=== PATIENT | female | born 1940 | race Caucasian/White ===

== ENCOUNTER → 2017-05-10 | Outpatient (CLI) | payer MEDICARE ==
[~2017-05-10] MED LIST: AML5T PO; AMLO10TA2 PO; ASP325T PO; ASPI-624 PO; AZIT250T5 PO; CEFD300C3 PO; CHOL500044 PO; CPR250T PO; FISH1200 PO; GABA-488 PO; GLIP5TAB13 PO; HYDR12.56 PO; INSU100C4 SQ; INSU100I10 SC; LOSA100T16 PO; METR500T PO; MULT-35 PO; OMG1KC PO; PRAV20TA3 PO; PRV20T PO
--- NOTE | 2017-05-10 10:01 | Diagnostic Imaging Report ---
INDICATION: Right upper quadrant pain. Gallbladder sonography performed in the routine fashion. FINDINGS: The liver shows diffuse mild increased echogenicity compatible with fatty infiltration. Portal vein is patent with flow in the normal direction towards the liver. Common duct measured 2.4 mm. The gallbladder shows no gallstones or sludge or wall thickening. Pancreas is unremarkable to the extent seen. The right kidney was normal measuring 8.8 cm in length. There is no ascites. IMPRESSION: Unremarkable gallbladder sonography. Dictated by: Dictated on workstation # [id number]
== END ==
LOC: RAD 07:39
PROVIDERS: ATTEND Family Medicine
DX: R10.11 Right upper quadrant pain (principal)
CPT/HCPCS: 76705

== ENCOUNTER → 2017-05-24 | Outpatient (CLI) | payer MEDICARE ==
[~2017-05-24] MED LIST changes: +CATHETER FLUSH 10 ML SYR IV PRN
--- NOTE | 2017-05-24 13:07 | Diagnostic Imaging Report ---
EXAMINATION: HIDA with EF measurements Indication: Abdominal pain TECHNIQUE: After the intravenous administration of 5.3 mCi of Tc 99m Choletec, imaging over the abdomen was obtained. This was followed by administration of Ensure orally to stimulate intrinsic CCK secretion, followed by continued imaging with ejection fraction measured. FINDINGS: There is homogeneous uptake in the liver with prompt bile duct and gallbladder filling seen. Bowel activity is seen at 55 minutes. Based on further imaging and gallbladder area of interest activity measurements after the administration of Ensure, the gallbladder ejection fraction is estimated at 60%. IMPRESSION: 1. Normal hepatobiliary uptake and Gallbladder filling. 2. Normal gallbladder ejection fraction. Dictated by: Dictated on workstation # [id number]
== END ==
LOC: CARD 09:32
PROVIDERS: ATTEND Family Medicine
DX: R10.11 Right upper quadrant pain (principal)
CPT/HCPCS: 78227

== ENCOUNTER → 2017-05-28 | Outpatient (CLI) | payer MEDICARE ==
[~2017-05-28] MED LIST changes: +IOHEXOL 350 MG/ML 100 ML (OMNIPAQUE 350) VIAL IV ONE; +NS 100 ML (IVPB) BAG IV ONE
--- NOTE | 2017-05-28 14:19 | Diagnostic Imaging Report ---
PROCEDURE: CT abdomen and pelvis with contrast. TECHNIQUE: Multiple contiguous axial images were obtained through the abdomen and pelvis after administration of intravenous contrast. INDICATION: Abdominal pain. COMPARISON: 02/28/2011. FINDINGS: There is minimal atelectasis in the lung bases. There is mild diffuse hepatic steatosis. No focal hepatic mass is seen. Gallbladder appears unremarkable. The portal vein appears patent. The pancreas, spleen and adrenal glands appear unremarkable. Both kidneys are atrophic with diffuse cortical thinning. There is a 1.6 cm cyst in the inferior left renal cortex. No obstructive changes are seen. The appendix appears normal. There is diverticulosis without evidence of diverticulitis. Calcification in the uterine fundus may be a degenerating uterine fibroid. There is no ascites or adenopathy. Abdominal aorta appears normal in caliber. There are degenerative changes in the spine. IMPRESSION: 1. Both kidneys are atrophied with diffuse cortical thinning. There is a 1.4 cm left renal cyst. 2. Diverticulosis without evidence of diverticulitis. 3. Mild diffuse hepatic steatosis. Dictated by: Dictated on workstation # [id number]
== END ==
LOC: RAD 13:03
PROVIDERS: ATTEND Family Medicine
DX: N28.1 Cyst of kidney, acquired (principal); N26.1 Atrophy of kidney (terminal); K57.30 Diverticulosis of large intestine without perforation or abscess without bleeding
CPT/HCPCS: 74177

== ENCOUNTER 2017-08-07 13:02 | Emergency (ER) | payer MEDICARE ==
[~2017-08-07] VITALS: Ht 152.4 cm; Wt 73.9 kg
[~2017-08-07 13:02] MED LIST changes: -CATHETER FLUSH 10 ML SYR IV PRN; -IOHEXOL 350 MG/ML 100 ML (OMNIPAQUE 350) VIAL IV ONE; -NS 100 ML (IVPB) BAG IV ONE
--- NOTE | 2017-08-07 13:55 | ED GI ---
General Chief Complaint: Abdominal/GI Problems Stated Complaint: RECTAL BLEEDING Nursing Triage Note: After receiving her dialysis, patient had a large BM with blood in the stool. Pt had similiar episode several years ago and had to receive blood transfusion. Denies pain. Sepsis Screen: No Definite Risk History of Present Illness Time Seen By Provider: 13:40 Initial Comments Patient reports that approximately 10:30 this morning she had a large bowel movement after finishing dialysis. She noted blood in the stool, it was bright red. She noted a small amount of blood on her toilet tissue as well. She has had a pad in her underwear since then with no blood noted. She does have a history of hemorrhoids, diverticulosis and chronic kidney disease. She has dialysis a proximally 3 times each week. She does report last week she was having constipation and had to use a suppository. She reports having a daily bowel movement for the last 3-4 days, with no diarrhea. She denies abdominal pain or nausea. Her appetite has maintained and she had cereal for breakfast this morning. She denies feeling weak or dizzy. She had a previous colonoscopy [place] [address] Dubose, no abdominal surgeries or further colonoscopies since then. She takes an aspirin a day but does not take any other anticoagulants. Patient reports taking her blood pressure medicine this morning, hydrochlorothiazide and metoprolol. She states that her blood pressure is very labile especially after dialysis. She does report approximately 3 days ago she was given iron with her dialysis. Timing/Duration: 1-3 Hours Radiation: No Radiation Modifying Factors: Improves With Resting Associated Symptoms: Denies Symptoms Allergies and Home Medications Allergies Coded Allergies: diphenhydramine HCl (Verified Allergy, Unknown, 08/24/16) Home Medications Amlodipine Besylate 10 Mg Tablet, 10 MG PO DAILY, (Reported) Aspirin 81 Mg Tablet, 81 MG PO TuFr, (Reported) Cefdinir 300 Mg Capsule, 300 MG PO BID, #10 Prescribed by: GERTRUDE NEWSOME on 08/26/16 0812 Cholecalciferol (Vitamin D3) 5,000 Unit Tablet, 5,000 UNIT PO DAILY, (Reported) Ciprofloxacin HCl 500 Mg Tablet, 500 MG PO BID, #14 Ref 0 Prescribed by: JENNIFER LINARES on 08/07/17 1556 Gabapentin 300 Mg Capsule, 300 MG PO HS, (Reported) Glipizide 5 Mg Tablet, 5 MG PO BID, (Reported) Hydrochlorothiazide 12.5 Mg Tablet, 12.5 MG PO DAILY, (Reported) Insulin Glargine,Hum.rec.anlog 100 Unit/1 Ml Insuln.pen, 28 UNITS SC HS, ( Reported) Metronidazole 500 Mg Tablet, 500 MG PO BID, #14 Ref 0 Prescribed by: JENNIFER LINARES on 08/07/17 1556 Multivitamin 1 Each Tablet, 1 TAB PO DAILY, (Reported) Sanford 3 Polyunsat Fatty Acids 1,000 Mg Cap, 2,000 MG PO BID, (Reported) TAKES 2 (1000MG) CAPSULES Pravastatin Sodium 20 Mg Tablet, 20 MG PO DAILY, (Reported) Review of Systems Constitutional: no symptoms reported, see HPI Gastrointestinal: See HPI, Denies Abdominal Pain, Blood Streaked Stools, Denies Constipated, Denies Diarrhea, Denies Nausea, Denies Poor Appetite, Denies Poor Fluid Intake, Denies Rectal Bleeding, Denies Vomiting Genitourinary: No Symptoms Reported, See HPI All Other Systems Reviewed Negative Unless Noted: Yes Past Izdeflz-Zzeotj-Hbymnr Hx Patient Social History Alcohol Use: Denies Use Recreational Drug Use: No Smoking Status: Never a Smoker Recent Foreign Travel: No Contact w/Someone Who Travel: No Recent Infectious Disease Expo: No Recent Hopitalizations: No Immunizations Up To Date Tetanus Booster (TDap): Unknown Date of Pneumonia Vaccine: Jan 14, 2012 Surgeries History of Surgeries: Yes (polyp removal ) Respiratory History of Respiratory Disorde: Yes Respiratory Disorders: Pneumonia Currently Using CPAP: No Currently Using BIPAP: No Cardiovascular History of Cardiac Disorders: Yes Cardiac Disorders: Hypertension Neurological History of Neurological Disord: No Reproductive System Hx Reproductive Disorders: No Genitourinary Genitourinary Disorders: Renal Failure Gastrointestinal History of Gastrointestinal Di: Yes Gastrointestinal Disorders: Gastroesophageal Reflux Musculoskeletal History of Musculoskeletal Dis: Yes Musculoskeletal Disorders: Arthritis Endocrine History of Endocrine Disorders: Yes Endocrine Disorders: Diabetes, Insulin dep Cancer History of Cancer: No Psychosocial History of Psychiatric Problem: Yes Behavioral Health Disorders: Sleep Difficulties, Anxiety, Depression Integumentary History of Skin or Integumenta: No Blood Transfusions History of Blood Disorders: No Adverse Reaction to a Blood Tr: Yes Reviewed Nursing Assessment Reviewed/Agree w Nursing PMH: Yes Family Medical History Family Medial History: Cardiovascular disease G8 SISTER Diabetes mellitus 19 FATHER 19 MOTHER Neoplasm 19 FATHER 19 MOTHER Physical Exam Vital Signs VS - Last 72 Hours, by Label 08/07/17 08/07/17 13:31 16:21 Temp 96.9 97.3 Pulse 90 84 Resp 16 16 B/P (MAP) 205/101 Pulse Ox 98 O2 Delivery Room Air Capillary Refill : Less Than 3 Seconds General Appearance: WD/WN, no apparent distress HEENT: PERRL/EOMI, normal ENT inspection, TMs normal, pharynx normal Neck: non-tender, full range of motion, supple, normal inspection Respiratory: chest non-tender, lungs clear Cardiovascular: normal peripheral pulses, regular rate, rhythm, no murmur Gastrointestinal: normal bowel sounds, non tender, soft, no organomegaly, no pulsatile mass Genital/Rectal: normal rectal exam, normal rectal tone, No tenderness, other ( no internal or external hemorrhoids noted) Extremities: normal range of motion, non-tender, normal inspection, no pedal edema, no calf tenderness, normal capillary refill Neurologic/Psychiatric: no motor/sensory deficits, alert, normal mood/affect, oriented x 3 Skin: normal color, warm/dry Lymphatic: no adenopathy Progress/Results/Core Measures Results/Orders Lab Results Laboratory Tests Test 08/07/17 14:45 Range/Units White Blood Count 5.7 4.3-11.0 10^3/uL Red Blood Count 3.81 L 4.35-5.85 10^6/uL Hemoglobin 12.4 11.5-16.0 G/DL Hematocrit 36 35-52 % Mean Corpuscular Volume 95 80-99 FL Mean Corpuscular Hemoglobin 33 25-34 PG Mean Corpuscular Hemoglobin Concent 34 32-36 G/DL Red Cell Distribution Width 14.0 10.0-14.5 % Platelet Count 190 130-400 10^3/uL Mean Platelet Volume 8.6 7.4-10.4 FL Neutrophils (%) (Auto) 69 42-75 % Lymphocytes (%) (Auto) 21 12-44 % Monocytes (%) (Auto) 7 0-12 % Eosinophils (%) (Auto) 2 0-10 % Basophils (%) (Auto) 1 0-10 % Neutrophils # (Auto) 4.0 1.8-7.8 X 10^3 Lymphocytes # (Auto) 1.2 1.0-4.0 X 10^3 Monocytes # (Auto) 0.4 0.0-1.0 X 10^3 Eosinophils # (Auto) 0.1 0.0-0.3 10^3/uL Basophils # (Auto) 0.0 0.0-0.1 10^3/uL Prothrombin Time 13.0 12.2-14.7 SEC INR Comment 1.0 0.8-1.4 Activated Partial Thromboplast Time 28 24-35 SEC Sodium Level 138 135-145 MMOL/L Potassium Level 3.9 3.6-5.0 MMOL/L Chloride Level 96 L 98-107 MMOL/L Carbon Dioxide Level 28 21-32 MMOL/L Anion Gap 14 5-14 MMOL/L Blood Urea Nitrogen 15 7-18 MG/DL Creatinine 2.18 H 0.60-1.30 MG/DL Estimat Glomerular Filtration Rate 22 BUN/Creatinine Ratio 7 Glucose Level 148 H 70-105 MG/DL Calcium Level 9.7 8.5-10.1 MG/DL Total Bilirubin 0.5 0.1-1.0 MG/DL Aspartate Amino Transf (AST/SGOT) 26 5-34 U/L Alanine Aminotransferase (ALT/SGPT) 28 0-55 U/L Alkaline Phosphatase 75 40-136 U/L Total Protein 7.6 6.4-8.2 GM/DL Albumin 4.1 3.2-4.5 GM/DL My Orders Orders - JENNIFER LINARES Cbc With Automated Diff (08/07/17 13:52) Comprehensive Metabolic Panel (08/07/17 13:52) Protime With Inr (08/07/17 14:36) Partial Thromboplastin Time (08/07/17 14:36) Type And Screen (08/07/17 14:48) Ct Abdomen/Pelvis Wo (08/07/17 15:27) Vital Signs/I&O Vital Sign - Last 12Hours 08/07/17 08/07/17 13:31 16:21 Temp 96.9 97.3 Pulse 90 84 Resp 16 16 B/P (MAP) 205/101 Pulse Ox 98 O2 Delivery Room Air Blood Pressure Mean: 135 Progress Note : Time: 13:40 Progress Note Exam completed, recommended a CBC and CMP. Will await the results of these to determine further testing or treatment. Patient denied any needs at the present time. 1430 patient ambulate bathroom had a bowel movement with bright red to maroon blood present in the toilet. 1445 WBC 5.7, RBCs 3.81, hemoglobin 12.4, hematocrit 36. PT 13, INR 1.0. Sodium 138, potassium 3.9, chloride 96, BUNs in 15, creatinine 2.18; eGFR 22, glucose 148. CT without contrast of the abdomen and pelvis. 1530 CT reviewed and discussed with patient. Discussed options and care for inpatient versus outpatient management, the patient is comfortable with managing this at home for the present time. Discussed at length risks and when she should return to the emergency department. She verbalized complete understanding of this. Will start Cipro and Flagyl for the possibility of diverticulitis. She has a prescheduled appointment with Dr. Newsome in 2 days. She will ask for referral to general surgeon for future colonoscopy. All questions answered. Diagnostic Imaging Diagonstic Imaging: CT Plain Films/CT/US/NM/MRI: abdomen, pelvis Comments NAME: FERNANDA MOTA [facility] REC#: [id number] PT STATUS: REG ER : 1940 PHYSICIAN: JENNIFER LINARES ADMIT DATE: 08/07/17/ER Draft Date of Exam:08/07/17 CT ABDOMEN/PELVIS WO PROCEDURE: CT abdomen and pelvis without contrast. TECHNIQUE: Multiple contiguous axial images were obtained through the abdomen and pelvis without the use of intravenous contrast. INDICATION: Rectal pain. Bloody stools. FINDINGS: The liver, gallbladder and bile ducts are normal. The spleen, pancreas and adrenals are normal. The kidneys, ureters and bladder are normal. There is diverticulosis of the sigmoid colon. There may be minimal edematous changes of the sigmoid colon which may be related to mild early diverticulitis which appears to be a slight change from 05/28/17 study. No obstruction or perforation is present and no abscess is present. The small bowel is normal. IMPRESSION: There is diverticulosis of the colon. There is possible mild diverticulitis of the sigmoid colon with no obstruction, perforation or abscess evident. Dictated on workstation # [id number] Dict: 08/07/17 1535 Trans: 08/07/17 1540 [id number] Interpreted by: ORTEGA LONGORIA MD Electronically signed by: Reviewed: Reviewed by Me Departure Impression Impression: Primary Impression: Hematochezia Additional Impression: Diverticulosis of both small and large intestine without perforation or abscess Disposition: HOME, SELF-CARE Condition: Stable Departure-Patient Inst. Decision time for Depature: 15:30 Referrals: GERTRUDE NEWSOME DO (PCP/Family) Primary Care Physician Patient Instructions: Diverticulosis (DC), Gastrointestinal Bleeding (DC) Add. Discharge Instructions: Hold aspirin until follow-up with Dr. Newsome. Keep appointment with Dr. Newsome for Wednesday. Return to emergency department if symptoms worsen with more frequent bloody stools, lightheaded or dizzy feelings, extremely high or low blood pressure, or new concerns. Eat a primarily clear liquid diet. Take medication as prescribed. All discharge instructions reviewed with patient and/or family. Voiced understanding. Scripts Metronidazole (Flagyl) 500 Mg Tablet 500 MG PO BID, #14 TAB 0 Refills Prov: JENNIFER LINARES 08/07/17 Ciprofloxacin HCl (Cipro) 500 Mg Tablet 500 MG PO BID, #14 TAB 0 Refills Prov: JENNIFER LINARES 08/07/17 Copy Copies To 1: GERTRUDE NEWSOME AMY ARNP Aug 07, 2017 13:55
[2017-08-07 14:57] LABS: BASOPHILS % (AUTO) 1 % (0-10); EOSINOPHILS # (AUTO) 0.1 10^3/uL (0.0-0.3); EOSINOPHILS % (AUTO) 2 % (0-10); LYMPHOCYTES # (AUTO) 1.2 X 10^3 (1.0-4.0); LYMPHOCYTES % (AUTO) 21 % (12-44); MEAN CORPUSCULAR HEMOGLOBIN 33 PG (25-34); MEAN CORPUSCULAR HGB CONC 34 G/DL (32-36); MEAN CORPUSCULAR VOLUME 95 FL (80-99); MEAN PLATELET VOLUME 8.6 FL (7.4-10.4); MONOCYTES # (AUTO) 0.4 X 10^3 (0.0-1.0); MONOCYTES % (AUTO) 7 % (0-12); NEUTROPHILS % (AUTO) 69 % (42-75); PLATELET COUNT 190 10^3/uL (130-400); RED BLOOD COUNT 3.81 10^6/uL (4.35-5.85); WHITE BLOOD COUNT 5.7 10^3/uL (4.3-11.0)
[2017-08-07 15:15] LABS: ALBUMIN 4.1 GM/DL (3.2-4.5); BILIRUBIN,TOTAL 0.5 MG/DL (0.1-1.0); CALCIUM 9.7 MG/DL (8.5-10.1); CREATININE SERUM 2.18 MG/DL (0.60-1.30); POTASSIUM 3.9 MMOL/L (3.6-5.0); TOTAL PROTEIN 7.6 GM/DL (6.4-8.2)
--- NOTE | 2017-08-07 15:41 | Diagnostic Imaging Report ---
PROCEDURE: CT abdomen and pelvis without contrast. TECHNIQUE: Multiple contiguous axial images were obtained through the abdomen and pelvis without the use of intravenous contrast. INDICATION: Rectal pain. Bloody stools. FINDINGS: The liver, gallbladder and bile ducts are normal. The spleen, pancreas and adrenals are normal. The kidneys, ureters and bladder are normal. There is diverticulosis of the sigmoid colon. There may be minimal edematous changes of the sigmoid colon which may be related to mild early diverticulitis which appears to be a slight change from 05/28/17 study. No obstruction or perforation is present and no abscess is present. The small bowel is normal. IMPRESSION: There is diverticulosis of the colon. There is possible mild diverticulitis of the sigmoid colon with no obstruction, perforation or abscess evident. Dictated by: Dictated on workstation # [id number]
[2017-08-07] MEDS ORDERED: CIPR-225 PO (15:56)
[2017-08-07] MEDS ORDERED: METR500T PO (15:56)
[2017-08-07 16:21] VITALS: BP 150/92
== END 2017-08-07 16:00 | disposition home or self-care (01) ==
LOC: EDUNIT# 13:02 → ER 13:03
DX: K92.1 Melena (principal); K57.50 Diverticulosis of both small and large intestine without perforation or abscess without bleeding; E11.22 Type 2 diabetes mellitus with diabetic chronic kidney disease; I12.0 Hypertensive chronic kidney disease with stage 5 chronic kidney disease or end stage renal disease; N18.6 End stage renal disease; F41.9 Anxiety disorder, unspecified; F32.9 Major depressive disorder, single episode, unspecified; Z99.2 Dependence on renal dialysis; Z87.19 Personal history of other diseases of the digestive system; Z79.82 Long term (current) use of aspirin; Z82.49 Family history of ischemic heart disease and other diseases of the circulatory system; Z79.4 Long term (current) use of insulin; Z79.84 Long term (current) use of oral hypoglycemic drugs; Z86.010 Personal history of colon polyps
CPT/HCPCS: 36415; 74176; 80053; 85025; 85610; 85730; 86850; 86900; 86901; 99282

== ENCOUNTER 2017-10-06 14:11 | Emergency (ER) | payer MEDICARE ==
[~2017-10-06] VITALS: Ht 160 cm; Wt 74.1 kg
[~2017-10-06 14:11] MED LIST changes: +AZIT250T12 PO; -AZIT250T5 PO; +CIPR-225 PO
--- NOTE | 2017-10-06 14:19 | ED Cardiac General ---
History of Present Illness General Stated Complaint: INCREASED HEART RATE PER DR GUERRERO Source: patient Exam Limitations: no limitations History of Present Illness Time seen by provider: 14:17 Initial Comments To ER per private vehicle from Dr. Dr. Newsome's office with reports of tachycardia. This was found incidentally during a routine visit with Dr. Ryan today which she has with him every 6 months. Patient reports that she has no symptoms whatsoever, intermittent shortness of breath only, no chest pain and no sensation of tachycardia. She does receive dialysis Wednesday and did have yesterday's treatment. Timing/Duration: changing over time Activities at Onset: none Prior CP/Workup: no prior chest pain NTG SL DIAMOND EXPERT: No ASA po DIAMOND EXPERT: No Allergies and Home Medications Allergies Coded Allergies: diphenhydramine HCl (Verified Allergy, Unknown, 08/24/16) Home Medications Amlodipine Besylate 10 Mg Tablet, 10 MG PO DAILY, (Reported) Aspirin 81 Mg Tablet, 81 MG PO , (Reported) Cefdinir 300 Mg Capsule, 300 MG PO BID, #10 Prescribed by: GERTRUDE NEWSOME on 08/26/16 0812 Cholecalciferol (Vitamin D3) 5,000 Unit Tablet, 5,000 UNIT PO DAILY, (Reported) Ciprofloxacin HCl 500 Mg Tablet, 500 MG PO BID, #14 Ref 0 Prescribed by: JENNIFER LINARES on 08/07/17 1556 Gabapentin 300 Mg Capsule, 300 MG PO HS, (Reported) Glipizide 5 Mg Tablet, 5 MG PO BID, (Reported) Hydrochlorothiazide 12.5 Mg Tablet, 12.5 MG PO DAILY, (Reported) Insulin Glargine,Hum.rec.anlog 100 Unit/1 Ml Insuln.pen, 28 UNITS SC HS, ( Reported) Metronidazole 500 Mg Tablet, 500 MG PO BID, #14 Ref 0 Prescribed by: JENNIFER LINARES on 08/07/17 155 Multivitamin 1 Each Tablet, 1 TAB PO DAILY, (Reported) [place] 3 Polyunsat Fatty Acids 1,000 Mg Cap, 2,000 MG PO BID, (Reported) TAKES 2 (1000MG) CAPSULES Pravastatin Sodium 20 Mg Tablet, 20 MG PO DAILY, (Reported) Review of Systems Constitutional: see HPI EENTM: No Symptoms Reported Respiratory: No Symptoms Reported Cardiovascular: No Symptoms Reported, Denies Chest Pain, Denies Edema, Denies Irregular Heart Rate, Denies Lightheadedness, Denies Palpitations, Denies Syncope Gastrointestinal: No Symptoms Reported Genitourinary: No Symptoms Reported Musculoskeletal: no symptoms reported Skin: no symptoms reported Psychiatric/Neurological: No Symptoms Reported Past Ixoaqvu-Lmrljn-Epjgzd Hx Patient Social History Recent Hopitalizations: No Immunizations Up To Date Tetanus Booster (TDap): Unknown Date of Pneumonia Vaccine: Jan 14, 2012 Surgeries History of Surgeries: Yes (polyp removal ) Respiratory History of Respiratory Disorde: Yes Respiratory Disorders: Pneumonia Currently Using CPAP: No Currently Using BIPAP: No Cardiovascular History of Cardiac Disorders: Yes Cardiac Disorders: Hypertension Neurological History of Neurological Disord: No Reproductive System Hx Reproductive Disorders: No Genitourinary Genitourinary Disorders: Renal Failure Gastrointestinal History of Gastrointestinal Di: Yes Gastrointestinal Disorders: Gastroesophageal Reflux Musculoskeletal History of Musculoskeletal Dis: Yes Musculoskeletal Disorders: Arthritis Endocrine History of Endocrine Disorders: Yes Endocrine Disorders: Diabetes, Insulin dep Cancer History of Cancer: No Psychosocial History of Psychiatric Problem: Yes Behavioral Health Disorders: Sleep Difficulties, Anxiety, Depression Integumentary History of Skin or Integumenta: No Blood Transfusions History of Blood Disorders: No Adverse Reaction to a Blood Tr: Yes Family Medical History Family Medial History: Cardiovascular disease G8 SISTER Diabetes mellitus 19 FATHER 19 MOTHER Neoplasm 19 FATHER 19 MOTHER Physical Exam Vital Signs Vital Sign - Last 12Hours 10/06/17 14:15 Temp 97.2 Pulse 78 Resp 24 B/P (MAP) 203/115 Pulse Ox 99 O2 Delivery Room Air Capillary Refill : General Appearance: No Apparent Distress, WD/WN, Other (very talkative, well- appearing. Attached to cardiac cath tech upon arrival to ER and found to be in sinus rhythm without ectopy heart rate 76.) HEENT: PERRL/EOMI, TMs Normal Neck: Full Range of Motion, Normal Inspection Respiratory: Normal Breath Sounds, No Accessory Muscle Use, No Respiratory Distress Cardiovascular: Regular Rate, Rhythm, Normal Peripheral Pulses Gastrointestinal: Non Tender, Soft Extremity: Normal Capillary Refill, Normal Inspection Neurologic/Psychiatric: Alert, Oriented x3 Skin: Normal Color, Warm/Dry Other comments There is no pedal edema and her lungs are clear to auscultation Progress/Results/Core Measures Results/Orders Lab Results Laboratory Tests Test 10/06/17 14:40 Range/Units White Blood Count 5.3 4.3-11.0 10^3/uL Red Blood Count 3.50 L 4.35-5.85 10^6/uL Hemoglobin 11.5 11.5-16.0 G/DL Hematocrit 33 L 35-52 % Mean Corpuscular Volume 95 80-99 FL Mean Corpuscular Hemoglobin 33 25-34 PG Mean Corpuscular Hemoglobin Concent 35 32-36 G/DL Red Cell Distribution Width 14.1 10.0-14.5 % Platelet Count 169 130-400 10^3/uL Mean Platelet Volume 9.0 7.4-10.4 FL Neutrophils (%) (Auto) 64 42-75 % Lymphocytes (%) (Auto) 28 12-44 % Monocytes (%) (Auto) 7 0-12 % Eosinophils (%) (Auto) 2 0-10 % Basophils (%) (Auto) 0 0-10 % Neutrophils # (Auto) 3.4 1.8-7.8 X 10^3 Lymphocytes # (Auto) 1.5 1.0-4.0 X 10^3 Monocytes # (Auto) 0.4 0.0-1.0 X 10^3 Eosinophils # (Auto) 0.1 0.0-0.3 10^3/uL Basophils # (Auto) 0.0 0.0-0.1 10^3/uL Prothrombin Time 12.5 12.2-14.7 SEC INR Comment 0.9 0.8-1.4 Activated Partial Thromboplast Time 30 24-35 SEC Sodium Level 139 135-145 MMOL/L Potassium Level 4.4 3.6-5.0 MMOL/L Chloride Level 99 98-107 MMOL/L Carbon Dioxide Level 30 21-32 MMOL/L Anion Gap 10 5-14 MMOL/L Blood Urea Nitrogen 36 H 7-18 MG/DL Creatinine 4.07 H 0.60-1.30 MG/DL Estimat Glomerular Filtration Rate 11 BUN/Creatinine Ratio 9 Glucose Level 216 H 70-105 MG/DL Calcium Level 9.6 8.5-10.1 MG/DL Magnesium Level 2.2 1.8-2.4 MG/DL Total Bilirubin 0.4 0.1-1.0 MG/DL Aspartate Amino Transf (AST/SGOT) 27 5-34 U/L Alanine Aminotransferase (ALT/SGPT) 47 0-55 U/L Alkaline Phosphatase 92 40-136 U/L Myoglobin 198.3 H 10.0-92.0 NG/ML Troponin I < 0.30 <0.30 NG/ML Total Protein 7.4 6.4-8.2 GM/DL Albumin 3.8 3.2-4.5 GM/DL My Orders Orders - CORBY ELIZABETH APRN Cbc With Automated Diff (10/06/17 14:16) Magnesium (10/06/17 14:16) Chest 1 View, Ap/Pa Only (10/06/17 14:16) Cardiac Profile 1 (10/06/17 14:16) Comprehensive Metabolic Panel (10/06/17 14:16) Myoglobin Serum (10/06/17 14:16) Protime With Inr (10/06/17 14:16) Partial Thromboplastin Time (10/06/17 14:16) O2 (10/06/17 14:16) Monitor-Rhythm Ecg Trace Only (10/06/17 14:16) Lipid Panel (10/07/17 06:00) Saline Lock/Iv-Start (10/06/17 14:16) Hydralazine Injection (Apresoline Inject (10/06/17 15:00) Diltiazem Injection (Cardizem Injection) (10/06/17 15:00) Sodium Chloride (Ad... W/Diltiazem Drip (10/06/17 15:30) Aspirin Chewable Tablet (Baby Aspirin Ch (10/06/17 15:30) Medications Given in ED Current Medications Medications Dose Ordered Sig/Dee Route Start Time Stop Time Status Last Admin Dose Admin Diltiazem HCl 10 mg ONCE ONCE IVP 10/06/17 15:00 10/06/17 15:01 DC 10/06/17 15:03 10 MG Vital Signs/I&O Vital Sign - Last 12Hours 10/06/17 14:15 Temp 97.2 Pulse 78 Resp 24 B/P (MAP) 203/115 Pulse Ox 99 O2 Delivery Room Air Diagnostic Imaging Diagonstic Imaging: Xray Plain Films/CT/US/NM/MRI: chest Comments NAME: FERNANDA MOTA REC#: [id number] PT STATUS: REG ER : 1940 PHYSICIAN: CORBY ELIZABETH APRN ADMIT DATE: 10/06/17/ER Draft Date of Exam:10/06/17 CHEST 1 VIEW, AP/PA ONLY EXAMINATION: Portable upright radiograph of the chest. INDICATION: Tachycardia. FINDINGS: The heart is moderately enlarged. There is interstitial thickening, suggestive of minimal vascular congestion, with probable background chronic component. No focal airspace opacity. No effusion or pneumothorax. The mediastinum and giuseppe appear unremarkable. IMPRESSION: Cardiomegaly with mild vascular congestion. Dictated on workstation # [id number] Dict: 10/06/17 1433 Trans: 10/06/17 1446 [id number] Interpreted by: PAULA GUAN MD Electronically signed by: Departure Communication (Admissions) Progress Notes 1457-patient has had a couple of runs of atrial fibrillation in the emergency room. A rate of 130-145. She does feel short of breath with this. These last less than a minute before she converts to sinus rhythm. She is noted to be switching between sinus and atrial fibrillation rather frequently. One dose of 10 mg Cardizem IV ordered. 1538-patient has intermittent bouts of tachycardia atrial fibrillation with a rate up to 140, intermittent pauses with heart rate down to 50. The Cardizem drip at 5 mg per hour has not yet been started and at this time she is 86 but heart rate is fluctuating frequently. If she develops a persistent tachycardia again we will start the Cardizem drip which is hanging at the bedside, but so far she has only received the bolus of 10 mg. Because she is on dialysis we will send to [facility] in [place] for cardiac evaluation. Dr. Darnell, hospitalist has graciously accepted the patient in transfer. Patient is agreeable to going to [place]. Blood pressure 160/90. Oxygen saturation 99 percent on room air. No tachypnea or dyspnea. Impression Impression: Primary Impression: End stage renal disease on dialysis Additional Impression: Paroxysmal atrial fibrillation Disposition: XF SHT-TRM HOSP Condition: Stable Departure-Patient Inst. Decision time for Depature: 14:19 Referrals: GERTRUDE NEWSOME DO (PCP/Family) Primary Care Physician Patient Instructions: NO INSTRUCTIONS GIVEN Add. Discharge Instructions: 1. Return to ER for any concerns Copy Copies To 1: GERTRUDE NEWSOME PETER J APRN Oct 06, 2017 14:19
--- NOTE | 2017-10-06 14:46 | Diagnostic Imaging Report ---
EXAMINATION: Portable upright radiograph of the chest. INDICATION: Tachycardia. FINDINGS: The heart is moderately enlarged. There is interstitial thickening, suggestive of minimal vascular congestion, with probable background chronic component. No focal airspace opacity. No effusion or pneumothorax. The mediastinum and giuseppe appear unremarkable. IMPRESSION: Cardiomegaly with mild vascular congestion. Dictated by: Dictated on workstation # [id number]
[2017-10-06 14:47] LABS: BASOPHILS % (AUTO) 0 % (0-10); EOSINOPHILS # (AUTO) 0.1 10^3/uL (0.0-0.3); EOSINOPHILS % (AUTO) 2 % (0-10); LYMPHOCYTES # (AUTO) 1.5 X 10^3 (1.0-4.0); LYMPHOCYTES % (AUTO) 28 % (12-44); MEAN CORPUSCULAR HEMOGLOBIN 33 PG (25-34); MEAN CORPUSCULAR HGB CONC 35 G/DL (32-36); MEAN CORPUSCULAR VOLUME 95 FL (80-99); MONOCYTES # (AUTO) 0.4 X 10^3 (0.0-1.0); MONOCYTES % (AUTO) 7 % (0-12); NEUTROPHILS # (AUTO) 3.4 X 10^3 (1.8-7.8); NEUTROPHILS % (AUTO) 64 % (42-75); PLATELET COUNT 169 10^3/uL (130-400); RED CELL DISTRIBUTION WIDTH 14.1 % (10.0-14.5); WHITE BLOOD COUNT 5.3 10^3/uL (4.3-11.0)
[2017-10-06] MEDS ORDERED: hydrALAZINE (APESOLINE) 20 MG/ML VIAL IV ONE ×2 (15:00→16:45)
[2017-10-06] MEDS ORDERED: DILTIAZEM 25 MG/5 ML INJ (CARDIZEM) VIAL IVP ONE (15:00)
[2017-10-06 15:02] LABS: INR 0.9 (0.8-1.4); PROTHROMBIN TIME PATIENT 12.5 SEC (12.2-14.7)
[2017-10-06 15:13] LABS: ALANINE AMINOTRANSFERASE 47 U/L (0-55); ALBUMIN 3.8 GM/DL (3.2-4.5); ANION GAP 10 MMOL/L (5-14); ASPARTATE AMINO TRANSFERASE 27 U/L (5-34); BILIRUBIN,TOTAL 0.4 MG/DL (0.1-1.0); BLOOD UREA NITROGEN 36 MG/DL (7-18); BUN/CREATININE RATIO 9; CALCIUM 9.6 MG/DL (8.5-10.1); CARBON DIOXIDE 30 MMOL/L (21-32); CHLORIDE 99 MMOL/L (98-107); CREATININE SERUM 4.07 MG/DL (0.60-1.30); GFR ESTIMATED 11; GLUCOSE 216 MG/DL (70-105); MAGNESIUM 2.2 MG/DL (1.8-2.4); POTASSIUM 4.4 MMOL/L (3.6-5.0); SODIUM 139 MMOL/L (135-145); TOTAL PROTEIN 7.4 GM/DL (6.4-8.2)
[2017-10-06 15:20] LABS: MYOGLOBIN SERUM 198.3 NG/ML (10.0-92.0)
[2017-10-06] MEDS ORDERED: DILTIAZEM DRIP 100 MG in SODIUM CHLORIDE (ADD-VANTAGE) 100 ML IV SCH (15:30)
[2017-10-06] MEDS ORDERED: ASPIRIN 81 MG CHEW (CHILDREN'S ASA) PO ONE (15:30)
[2017-10-06 17:15] VITALS: BP 188/101
== END 2017-10-06 17:15 | disposition short-term general hospital (02) ==
LOC: EDUNIT# 14:11 → ER 14:13
DX: E11.22 Type 2 diabetes mellitus with diabetic chronic kidney disease (principal); I12.0 Hypertensive chronic kidney disease with stage 5 chronic kidney disease or end stage renal disease; N18.6 End stage renal disease; I48.0 Paroxysmal atrial fibrillation; K21.9 Gastro-esophageal reflux disease without esophagitis; M19.90 Unspecified osteoarthritis, unspecified site; F41.9 Anxiety disorder, unspecified; F32.9 Major depressive disorder, single episode, unspecified; Z79.82 Long term (current) use of aspirin; Z79.4 Long term (current) use of insulin; Z86.010 Personal history of colon polyps; Z87.01 Personal history of pneumonia (recurrent); Z82.49 Family history of ischemic heart disease and other diseases of the circulatory system; Z99.2 Dependence on renal dialysis
CPT/HCPCS: 36415; 71010; 80053; 83735; 83874; 84484; 85025; 85610; 85730; 93005; 93041

== ENCOUNTER → 2018-01-26 | Outpatient (CLI) | payer MEDICARE ==
[2018-01-26 08:25] LABS: BASOPHILS % (AUTO) 0 % (0-10); EOSINOPHILS # (AUTO) 0.1 10^3/uL (0.0-0.3); EOSINOPHILS % (AUTO) 2 % (0-10); HEMATOCRIT 39 % (35-52); HEMOGLOBIN 12.9 G/DL (11.5-16.0); LYMPHOCYTES % (AUTO) 18 % (12-44); MEAN CORPUSCULAR HEMOGLOBIN 32 PG (25-34); MEAN CORPUSCULAR HGB CONC 33 G/DL (32-36); MEAN CORPUSCULAR VOLUME 98 FL (80-99); MEAN PLATELET VOLUME 8.4 FL (7.4-10.4); MONOCYTES # (AUTO) 0.5 X 10^3 (0.0-1.0); MONOCYTES % (AUTO) 8 % (0-12); NEUTROPHILS # (AUTO) 4.2 X 10^3 (1.8-7.8); NEUTROPHILS % (AUTO) 72 % (42-75); PLATELET COUNT 172 10^3/uL (130-400); RED BLOOD COUNT 4.01 10^6/uL (4.35-5.85); RED CELL DISTRIBUTION WIDTH 14.6 % (10.0-14.5); WHITE BLOOD COUNT 5.8 10^3/uL (4.3-11.0)
[2018-01-26 08:48] LABS: ALBUMIN 3.9 GM/DL (3.2-4.5); BILIRUBIN,TOTAL 0.5 MG/DL (0.1-1.0); CALCIUM 9.9 MG/DL (8.5-10.1); CREATININE SERUM 4.28 MG/DL (0.60-1.30); POTASSIUM 4.3 MMOL/L (3.6-5.0); TOTAL PROTEIN 7.1 GM/DL (6.4-8.2)
--- NOTE | 2018-01-26 09:06 | Diagnostic Imaging Report ---
PROCEDURE: US Gallbladder. TECHNIQUE: Multiple real-time grayscale images were obtained over the right upper quadrant in various projections. INDICATION: Right upper quadrant pain The liver parenchyma is homogeneous with normal echotexture. The gallbladder is clear with no stones or wall thickening. Common duct is not dilated. Pancreas is obscured by bowel gas. Right kidney appear normal. There is no ascites. IMPRESSION: Negative gallbladder sonogram. Dictated by: Dictated on workstation # [id number]
== END ==
LOC: RAD 08:04
PROVIDERS: ATTEND Family Medicine
DX: R10.11 Right upper quadrant pain (principal)
CPT/HCPCS: 36415; 76705; 80053; 82150; 83690; 85025

== ENCOUNTER → 2018-01-27 | Outpatient (CLI) | payer MEDICARE ==
--- NOTE | 2018-01-27 15:56 | Diagnostic Imaging Report ---
PROCEDURE: CT abdomen and pelvis without contrast. TECHNIQUE: Multiple contiguous axial images were obtained through the abdomen and pelvis without the use of intravenous contrast. INDICATION: Right upper quadrant pain radiating into the back compared with study 08/07/2017. The gallbladder appeared normal. There is no bile duct dilatation. There is no hydronephrosis and no opaque urinary tract calculus found. There is severe diverticulosis of the sigmoid colon with no convincing evidence for active perisigmoidal edema. The uterus, adnexa and urinary bladder unremarkable. The appendix visualized and normal. No ascites, abscess, hematoma or fluid collection. The calcified aorta is nonaneurysmal. The lung bases appeared nonacute. IMPRESSION: Severe noninflamed diverticulosis of the colon most notably at the sigmoid. Unobstructed and nonfocal urinary tracts with negative appendix. No hepatobiliary abnormality. No acute finding demonstrated. Dictated by: Dictated on workstation # [id number]
== END ==
LOC: RAD 14:49
PROVIDERS: ATTEND Family Medicine
DX: K57.30 Diverticulosis of large intestine without perforation or abscess without bleeding (principal)
CPT/HCPCS: 74176

== ENCOUNTER → 2018-02-11 | Outpatient (CLI) | payer MEDICARE ==
[~2018-02-11] MED LIST changes: +CATHETER FLUSH 10 ML SYR IV PRN
--- NOTE | 2018-02-11 16:31 | Diagnostic Imaging Report ---
INDICATION: Right upper quadrant abdominal pain COMPARISON: 05/24/2017. Tc-99m Choletec 5.39 mCi IV followed by 8 ounces of Ensure orally. FINDINGS: The upper abdomen was imaged for 60 minutes with the gamma camera. There is normal appearance of activity in the liver. There is activity in the common duct and gallbladder by 60 minutes. After 60 minutes, the patient received CCK. After an additional 60 minutes of imaging, the gallbladder ejection fraction was calculated to be 20% which is below the lower limits of normal. IMPRESSION: 1. Cystic and common bile ducts are patent, but gallbladder ejection fraction is low at 20%. Findings can be seen with gallbladder dyskinesia as well as acalculous cholecystitis. Dictated by: Dictated on workstation # [id number]
== END ==
LOC: CARD 10:29
PROVIDERS: ATTEND Family Medicine
DX: R10.11 Right upper quadrant pain (principal)
CPT/HCPCS: 78227

== ENCOUNTER 2018-02-24 05:30 | Outpatient (CLI) | payer MEDICARE ==
[~2018-02-24] VITALS: Ht 152.4 cm; Wt 73.9 kg
[~2018-02-24 05:30] MED LIST changes: -CATHETER FLUSH 10 ML SYR IV PRN
[2018-02-24] MEDS ORDERED: CARV12.53 PO (14:50)
[2018-02-24] MEDS ORDERED: INSU100I32 SQ (14:50)
[2018-02-24] MEDS ORDERED: APIX5TAB PO (14:50)
[2018-03-02] MEDS ORDERED: ACHD5005 PO (09:23)
== END 2018-02-24 15:01 ==
LOC: PREOP 05:30
PROVIDERS: ATTEND Surgery
DX: Z01.818 Encounter for other preprocedural examination (principal)

== ENCOUNTER 2018-08-10 16:59 | Emergency (ER) | payer MEDICARE, OTHER ==
[~2018-08-10] VITALS: Ht 152.4 cm; Wt 73.9 kg
[~2018-08-10 16:59] MED LIST changes: +ACHD5005 PO; -AMLO10TA2 PO; +AMLO10TA6 PO; +APIX5TAB PO; +CARV12.53 PO; +INSU100I32 SQ
--- OUTSIDE RECORDS SUMMARY | 2018-08-10 17:05 | XMS REPORT | Continuity of Care Document ---
Author Author [facility] Organization [facility] Address Unknown Phone Unavailable Allergies Active Description Code Type Severity Reaction Onset Reported/Identified Relationship to Patient Clinical Status Yes diphenhydramine HCl [id number] Drug Allergy Unknown N/A 08/24/2016 Medications There is no data. Problems Date Dx Coded Attending Type Code Diagnosis Diagnosed By 03/06/2011 Ot 250.00 DIAB ABDIRAHMAN WO COMPL, TYPE II OR UNSPEC TY 03/06/2011 Ot 285.1 AC POSTHEMORRHAG ANEMIA 03/06/2011 Ot 401.9 HYPERTENSION NOS 03/06/2011 Ot 562.12 DIVERTICULOSIS OF COLON WITH HEMORRHAGE 03/06/2011 Ot V12.72 PERSONAL HISTORY OF COLONIC POLYPS 03/06/2011 Ot V58.66 LONG-TERM ( CURRENT) USE OF ASPIRIN 05/21/2013 Ot 599.0 URIN TRACT INFECTION NOS 01/12/2014 JEFFREY VILLA, THOMAS Angel Ot 578.1 BLOOD IN STOOL 01/12/2014 JEFFREY VILLA, THOMAS Angel Ot 789.00 ABDOMINAL PAIN, UNSPECIFIED SITE 04/06/2015 ERASMO CURTIS BENCH HAND MACHINE-C Ot 250.40 04/06/2015 ERASMO CURTIS BENCH HAND MACHINE-C Ot 250.60 04/06/2015 ERASMO CURTIS BENCH HAND MACHINE-C Ot 278.00 04/06/2015 ERASMO CURTIS BENCH HAND MACHINE-C Ot 357.2 04/06/2015 ERASMO CURTIS BENCH HAND MACHINE-C Ot 404.10 04/06/2015 ERASMO CURTIS NP-C Ot 585.4 05/21/2015 ERASMO CURTIS BENCH HAND MACHINE-C Ot 250.40 DIAB W RENAL MANIFEST, TYPE II OR UNSPEC 05/21/2015 ERASMO CURTIS BENCH HAND MACHINE-C Ot 250.60 DIAB W NEURO MANIFEST, TYPE II OR UNSPEC 05/21/2015 ERASMO CURTIS BENCH HAND MACHINE-C Ot 278.00 OBESITY, NOS 05/21/2015 NEW, ERASMO G. BENCH HAND MACHINE-C Ot 357.2 NEUROPATHY IN DIABETES 05/21/2015 NEW, ERASMO Mcnamara. 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 BENCH HAND MACHINE-C Ot 585.4 CHRONIC KIDNEY DISEASE, STAGE IV (SEVERE 06/21/2015 GELLENDER DO, GERTRUDE A Ot 250.00 06/21/2015 GELLENRONY DO, GERTRUDE A Ot 593.9 10/31/2015 NEW, ERASMO Mcnamara. BENCH HAND MACHINE-C Ot D63.1 10/31/2015 NEW, ERASMO G. BENCH HAND MACHINE-C Ot E11.22 10/31/2015 NEW, ERASMO G. BENCH HAND MACHINE-C Ot E11.40 10/31/2015 NEW, ERASMO G. BENCH HAND MACHINE-C Ot E55.9 10/31/2015 NEW, ERASMO G. BENCH HAND MACHINE-C Ot E66.9 10/31/2015 NEW, ERASMO G. BENCH HAND MACHINE-C Ot E87.2 10/31/2015 NEW, ERASMO G. BENCH HAND MACHINE-C Ot I13.10 10/31/2015 NEW, ERASMO G. BENCH HAND MACHINE-C Ot N18.4 10/31/2015 NEW, ERASMO G. BENCH HAND MACHINE-C Ot R80.9 01/08/2016 NEW, ERASMO G. BENCH HAND MACHINE-C Ot D63.1 01/08/2016 NEW, ERASMO G. BENCH HAND MACHINE-C Ot E11.22 01/08/2016 NEW, ERASMO G. BENCH HAND MACHINE-C Ot E11.40 01/08/2016 NEW, ERASMO G. BENCH HAND MACHINE-C Ot E55.9 01/08/2016 NEW, ERASMO G. BENCH HAND MACHINE-C Ot E66.9 01/08/2016 NEW, ERASMO G. BENCH HAND MACHINE-C Ot E87.2 01/08/2016 NEW, ERASMO G. BENCH HAND MACHINE-C Ot I13.10 01/08/2016 NEW, ERASMO G. BENCH HAND MACHINE-C Ot N18.4 01/08/2016 NEW, ERASMO G. BENCH HAND MACHINE-C Ot R80.9 08/24/2016 Ot 285.9 ANEMIA NOS 08/24/2016 Ot 578.9 GASTROINTEST HEMORR NOS 08/24/2016 Ot 599.0 URIN TRACT INFECTION NOS 08/24/2016 NEW, ERASMO G. 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 08/24/2016 NEW, ERASMO Timmons BENCH HAND MACHINE-C Ot 585.4 CHRONIC KIDNEY DISEASE, STAGE IV (SEVERE 08/24/2016 NEW, ERASMO Timmons BENCH HAND MACHINE-C Ot 753.10 CYSTIC KIDNEY DISEASE, UNSPECIFIED 08/24/2016 NEW, ERASMO Timmons BENCH HAND MACHINE-C Ot 250.40 DIAB W RENAL MANIFEST, TYPE II OR UNSPEC 08/24/2016 NEW, ERASMO NaimaRboerth BENCH HAND MACHINE-C Ot 250.60 DIAB W NEURO MANIFEST, TYPE II OR UNSPEC 08/24/2016 NEW, ERASMO NaimaRoberth BENCH HAND MACHINE-C Ot 278.00 OBESITY, NOS 08/24/2016 NEW, ERASMO Timmons BENCH HAND MACHINE-C Ot 357.2 NEUROPATHY IN DIABETES 08/24/2016 KIRSTEN, ERASMO Timmons 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 08/24/2016 ERASMO CURTIS BENCH HAND MACHINE-C Ot 585.4 CHRONIC KIDNEY DISEASE, STAGE IV (SEVERE 08/24/2016 GERTRUDE NEWSOME DO Ot 250.00 DIAB ABDIRAHMAN WO COMPL, TYPE II OR UNSPEC TY 08/24/2016 GERTRUDE NEWSOME DO Ot 593.9 RENAL URETERAL DIS NOS 08/24/2016 NEW, ERASMO Timmons BENCH HAND MACHINE-C Ot D63.1 ANEMIA IN CHRONIC KIDNEY DISEASE 08/24/2016 KIRSTEN, ERASMO Timmons BENCH HAND MACHINE-C Ot 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 08/24/2016 NEW, ERASMO Timmons BENCH HAND MACHINE-C Ot E11.40 TYPE 2 DIABETES MELLITUS WITH DIABETIC N 08/24/2016 NEW, ERASMO Timmons BENCH HAND MACHINE-C Ot E55.9 VITAMIN D DEFICIENCY, UNSPECIFIED 08/24/2016 NEW, ERASMO NaimaRoberth BENCH HAND MACHINE-C Ot E66.9 OBESITY, UNSPECIFIED 08/24/2016 NEW, ERASMO Timmons BENCH HAND MACHINE-C Ot E87.2 ACIDOSIS 08/24/2016 NEW, ERASMO Timmons BENCH HAND MACHINE-C Ot 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 BENCH HAND MACHINE-C Ot 250.60 DIAB W NEURO MANIFEST, TYPE II OR UNSPEC 08/24/2016 NEW, ERASMO G. BENCH HAND MACHINE-C Ot 278.00 OBESITY, NOS 08/24/2016 NEW, ERASMO G. 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 08/24/2016 ERASMO CURTIS BENCH HAND MACHINE-C Ot 585.4 CHRONIC KIDNEY DISEASE, STAGE IV (SEVERE 08/24/2016 Ot 599.0 URIN TRACT INFECTION NOS 08/24/2016 ERASMO CURTIS BENCH HAND MACHINE-C Ot 250.40 DIAB W RENAL MANIFEST, TYPE II OR UNSPEC 08/24/2016 NEWERASMO BENCH HAND MACHINE-C Ot 250.60 DIAB W NEURO MANIFEST, TYPE II OR UNSPEC 08/24/2016 ERASMO CURTIS BENCH HAND MACHINE-C Ot 278.00 OBESITY, NOS 08/24/2016 ERASMO CURTIS BENCH HAND MACHINE-C Ot 357.2 NEUROPATHY IN DIABETES 08/24/2016 ERASMO CURTIS 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 08/24/2016 ERASMO CURTIS BENCH HAND MACHINE-C Ot 585.4 CHRONIC KIDNEY DISEASE, STAGE IV (SEVERE 08/26/2016 GERTRUDE NEWSOME DO Ot E11.9 TYPE 2 DIABETES MELLITUS WITHOUT COMPLIC 08/26/2016 GERTRUDE NEWSOME DO Ot I12.9 HYPERTENSIVE CHRONIC KIDNEY DISEASE W ST 08/26/2016 GERTRUDE NEWSOME DO Ot J18.9 PNEUMONIA, UNSPECIFIED ORGANISM 08/26/2016 GELLENDER DO GERTRUDE Shai Ot K21.9 GASTRO-ESOPHAGEAL REFLUX DISEASE WITHOUT 08/26/2016 GELLENDER GERTRUDE COOK Ot M19.90 UNSPECIFIED OSTEOARTHRITIS, UNSPECIFIED 08/26/2016 GELLENDER GERTRUDE COOK Ot N18.4 CHRONIC KIDNEY DISEASE, STAGE 4 (SEVERE) 08/26/2016 GERTRUDE NEWSOME DO Ot R11.14 BILIOUS VOMITING 08/26/2016 GERTRUDE NEWSOME DO Ot 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 09/03/2016 ERASMO CURTIS BENCH HAND MACHINE-C Ot D63.1 ANEMIA IN CHRONIC KIDNEY DISEASE 09/03/2016 ERASMO CURTIS BENCH HAND MACHINE-C Ot 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 09/03/2016 ERASMO CURTIS BENCH HAND MACHINE-C Ot E11.40 TYPE 2 DIABETES MELLITUS WITH DIABETIC N 09/03/2016 ERASMO CURTIS BENCH HAND MACHINE-C Ot E55.9 VITAMIN D DEFICIENCY, UNSPECIFIED 09/03/2016 ERASMO CURTIS BENCH HAND MACHINE-C Ot E66.9 OBESITY, UNSPECIFIED 09/03/2016 JUN CURTISA GRoberth BENCH HAND MACHINE-C Ot E78.5 HYPERLIPIDEMIA, UNSPECIFIED 09/03/2016 NEW, ERASMO GRoberth BENCH HAND MACHINE-C Ot E83.39 OTHER DISORDERS OF PHOSPHORUS METABOLISM 09/03/2016 NEW, ERASMO GRoberth BENCH HAND MACHINE-C Ot E87.2 ACIDOSIS 09/03/2016 NEW, ERASMO McnamaraRoberth BENCH HAND MACHINE-C Ot E88.09 OTH DISORDERS OF PLASMA-PROTEIN METABOLI 09/03/2016 NEW, ERASMO G. BENCH HAND MACHINE-C Ot I12.0 HYP CHR KIDNEY DISEASE W STAGE 5 CHR KID 09/03/2016 NEW, ERASMO GRoberth BENCH HAND MACHINE-C Ot N18.5 CHRONIC KIDNEY DISEASE, STAGE 5 09/03/2016 NEW, ERASMO G. BENCH HAND MACHINE-C Ot R31.9 HEMATURIA, UNSPECIFIED 09/03/2016 NEW, ERASMO G. BENCH HAND MACHINE-C Ot R79.89 OTHER SPECIFIED ABNORMAL FINDINGS OF BLO 09/03/2016 NEW, ERASMO G. BENCH HAND MACHINE-C Ot R80.8 OTHER PROTEINURIA 09/07/2016 NEW, ERASMO G. BENCH HAND MACHINE-C Ot D63.1 ANEMIA IN CHRONIC KIDNEY DISEASE 09/07/2016 NEW, ERASMO G. 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 BENCH HAND MACHINE-C Ot E11.40 TYPE 2 DIABETES MELLITUS WITH DIABETIC N 09/07/2016 NEW, ERASMO G. BENCH HAND MACHINE-C Ot E55.9 VITAMIN D DEFICIENCY, UNSPECIFIED 09/07/2016 NEW, ERASMO G. BENCH HAND MACHINE-C Ot E66.9 OBESITY, UNSPECIFIED 09/07/2016 NEW, ERASMO McnamaraRoberth BENCH HAND MACHINE-C Ot E78.5 HYPERLIPIDEMIA, UNSPECIFIED 09/07/2016 NEW, ERASMO G. BENCH HAND MACHINE-C Ot E83.39 OTHER DISORDERS OF PHOSPHORUS METABOLISM 09/07/2016 NEW, ERASMO G. BENCH HAND MACHINE-C Ot E87.2 ACIDOSIS 09/07/2016 NEW, ERASMO G. BENCH HAND MACHINE-C Ot E88.09 OTH DISORDERS OF PLASMA-PROTEIN METABOLI 09/07/2016 NEW, ERASMO G. BENCH HAND MACHINE-C Ot I12.0 HYP CHR KIDNEY DISEASE W STAGE 5 CHR KID 09/07/2016 NEW, ERASMO NaimaRoberth BENCH HAND MACHINE-C Ot N18.5 CHRONIC KIDNEY DISEASE, STAGE 5 09/07/2016 NEW, ERASMO G. BENCH HAND MACHINE-C Ot R31.9 HEMATURIA, UNSPECIFIED 09/07/2016 NEW, ERASMO Timmons BENCH HAND MACHINE-C Ot R79.89 OTHER SPECIFIED ABNORMAL FINDINGS OF BLO 09/07/2016 NEW, ERASMO Timmons BENCH HAND MACHINE-C Ot R80.8 OTHER PROTEINURIA 09/07/2016 Ot 285.9 ANEMIA NOS 09/07/2016 Ot 578.9 GASTROINTEST HEMORR NOS 09/07/2016 Ot 599.0 URIN TRACT INFECTION NOS 09/07/2016 NEW, ERASMO NaimaRoberth BENCH HAND MACHINE-C Ot 250.40 DIAB W RENAL MANIFEST, TYPE II OR UNSPEC 09/07/2016 NEW, ERASMO McnamaraRoberth BENCH HAND MACHINE-C Ot 250.60 DIAB W NEURO MANIFEST, TYPE II OR UNSPEC 09/07/2016 NEW, ERASMO NaimaRoberth BENCH HAND MACHINE-C Ot 272.4 HYPERLIPIDEMIA NEC/NOS 09/07/2016 NEW, ERASMO McnamaraRoberth BENCH HAND MACHINE-C Ot 278.00 OBESITY, NOS 09/07/2016 NEW, ERASMO McnamaraRoberth BENCH HAND MACHINE-C Ot 355.9 MONONEURITIS NOS 09/07/2016 NEW, ERASMO McnamaraRoberth 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 09/07/2016 NEW, ERASMO McnamaraRoberth BENCH HAND MACHINE-C Ot 585.4 CHRONIC KIDNEY DISEASE, STAGE IV (SEVERE 09/07/2016 NEW, ERASMO McnamaraRoberth BENCH HAND MACHINE-C Ot 753.10 CYSTIC KIDNEY DISEASE, UNSPECIFIED 09/07/2016 NEW, ERASMO McnamaraRoberth BENCH HAND MACHINE-C Ot 250.40 DIAB W RENAL MANIFEST, TYPE II OR UNSPEC 09/07/2016 NEW, ERASMO McnamaraRoberth BENCH HAND MACHINE-C Ot 250.60 DIAB W NEURO MANIFEST, TYPE II OR UNSPEC 09/07/2016 NEW, ERASMO GRoberth BENCH HAND MACHINE-C Ot 278.00 OBESITY, NOS 09/07/2016 NEW, ERASMO GRoberth BENCH HAND MACHINE-C Ot 357.2 NEUROPATHY IN DIABETES 09/07/2016 NEW, EARSMO NaimaRoberth 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 09/07/2016 NEW, ERASMO GRoberth BENCH HAND MACHINE-C Ot 585.4 CHRONIC KIDNEY DISEASE, STAGE IV (SEVERE 09/07/2016 GELGERTRUDE GRIMALDO DO Ot 250.00 DIAB ABDIRAHMAN WO COMPL, TYPE II OR UNSPEC TY 09/07/2016 GERTRUDE NEWSOME DO Ot 593.9 RENAL URETERAL DIS NOS 09/07/2016 NEW, ERASMO Timmons NP-C Ot D63.1 ANEMIA IN CHRONIC KIDNEY DISEASE 09/07/2016 NEW, ERASMO Timmons BENCH HAND MACHINE-C Ot 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 09/07/2016 NEW, ERASMO Timmons BENCH HAND MACHINE-C Ot E11.40 TYPE 2 DIABETES MELLITUS WITH DIABETIC N 09/07/2016 NEW, ERASMO Timmons NP-C Ot E55.9 VITAMIN D DEFICIENCY, UNSPECIFIED 09/07/2016 NEW, ERASMO Timmons BENCH HAND MACHINE-C Ot E66.9 OBESITY, UNSPECIFIED 09/07/2016 NEW, ERASMO Timmons BENCH HAND MACHINE-C Ot E87.2 ACIDOSIS 09/07/2016 NEW, ERASMO Timmons BENCH HAND MACHINE-C Ot 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, W S 09/07/2016 NEW, ERASMO Timmons BENCH HAND MACHINE-C Ot N18.4 CHRONIC KIDNEY DISEASE, STAGE 4 (SEVERE) 09/07/2016 NEW, ERASMO Timmons BENCH HAND MACHINE-C Ot R80.9 PROTEINURIA, UNSPECIFIED 09/07/2016 NEW, ERASMO Timmons BENCH HAND MACHINE-C Ot D63.1 ANEMIA IN CHRONIC KIDNEY DISEASE 09/07/2016 NEW, ERASMO Timmons BENCH HAND MACHINE-C Ot 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 09/07/2016 NEW, ERASMO Timmons BENCH HAND MACHINE-C Ot E11.40 TYPE 2 DIABETES MELLITUS WITH DIABETIC N 09/07/2016 NEW, ERASMO Timmons BENCH HAND MACHINE-C Ot E55.9 VITAMIN D DEFICIENCY, UNSPECIFIED 09/07/2016 NEW, ERASMO Timmons BENCH HAND MACHINE-C Ot E66.9 OBESITY, UNSPECIFIED 09/07/2016 NEW, ERASMO Timmons BENCH HAND MACHINE-C Ot E87.2 ACIDOSIS 09/07/2016 NEW, ERASMO Timmons BENCH HAND MACHINE-C Ot 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, W S 09/07/2016 NEW, ERASMO Timmons BENCH HAND MACHINE-C Ot N18.4 CHRONIC KIDNEY DISEASE, STAGE 4 (SEVERE) 09/07/2016 NEW, ERASMO Timmons BENCH HAND MACHINE-C Ot R80.9 PROTEINURIA, UNSPECIFIED 09/07/2016 NEW, ERASMO Timmons BENCH HAND MACHINE-C Ot D63.1 ANEMIA IN CHRONIC KIDNEY DISEASE 09/07/2016 NEW, ERASMO Timmons BENCH HAND MACHINE-C Ot 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 BENCH HAND MACHINE-C Ot E66.9 OBESITY, UNSPECIFIED 09/07/2016 NEW, ERASMO GRoberth BENCH HAND MACHINE-C Ot E78.5 HYPERLIPIDEMIA, UNSPECIFIED 09/07/2016 NEW, ERASMO G. BENCH HAND MACHINE-C Ot E83.39 OTHER DISORDERS OF PHOSPHORUS METABOLISM 09/07/2016 NEW, ERASMO GRoberth BENCH HAND MACHINE-C Ot E87.2 ACIDOSIS 09/07/2016 NEW, ERASMO G. BENCH HAND MACHINE-C Ot E88.09 OTH DISORDERS OF PLASMA-PROTEIN METABOLI 09/07/2016 NEW, ERASMO G. BENCH HAND MACHINE-C Ot I12.0 HYP CHR KIDNEY DISEASE W STAGE 5 CHR KID 09/07/2016 NEW, ERASMO G. BENCH HAND MACHINE-C Ot N18.5 CHRONIC KIDNEY DISEASE, STAGE 5 09/07/2016 NEW, ERASMO G. BENCH HAND MACHINE-C Ot R31.9 HEMATURIA, UNSPECIFIED 09/07/2016 NEW, ERASMO G. BENCH HAND MACHINE-C Ot R79.89 OTHER SPECIFIED ABNORMAL FINDINGS OF BLO 09/07/2016 NEW, ERASMO G. BENCH HAND MACHINE-C Ot R80.8 OTHER PROTEINURIA 09/07/2016 NEW, ERASMO G. 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 BENCH HAND MACHINE-C Ot E66.9 OBESITY, UNSPECIFIED 09/07/2016 NEW, ERASMO G. BENCH HAND MACHINE-C Ot E78.5 HYPERLIPIDEMIA, UNSPECIFIED 09/07/2016 NEW, ERASMO G. BENCH HAND MACHINE-C Ot E83.39 OTHER DISORDERS OF PHOSPHORUS METABOLISM 09/07/2016 NEW, ERASMO G. BENCH HAND MACHINE-C Ot E87.2 ACIDOSIS 09/07/2016 NEW, ERASMO G. BENCH HAND MACHINE-C Ot E88.09 OTH DISORDERS OF PLASMA-PROTEIN METABOLI 09/07/2016 NEW, ERASMO G. BENCH HAND MACHINE-C Ot I12.0 HYP CHR KIDNEY DISEASE W STAGE 5 CHR KID 09/07/2016 NEW, ERASMO Timmons BENCH HAND MACHINE-C Ot N18.5 CHRONIC KIDNEY DISEASE, STAGE 5 09/07/2016 NEW, ERASMO Timmons BENCH HAND MACHINE-C Ot R31.9 HEMATURIA, UNSPECIFIED 09/07/2016 NEW, ERASMO G. BENCH HAND MACHINE-C Ot R79.89 OTHER SPECIFIED ABNORMAL FINDINGS OF BLO 09/07/2016 NEW, ERASMO G. BENCH HAND MACHINE-C Ot R80.8 OTHER PROTEINURIA 09/15/2016 NEW, ERASMO G. BENCH HAND MACHINE-C Ot D63.1 ANEMIA IN CHRONIC KIDNEY DISEASE 09/15/2016 NEW, ERASMO G. 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 BENCH HAND MACHINE-C Ot E11.40 TYPE 2 DIABETES MELLITUS WITH DIABETIC N 09/15/2016 NEW, ERASMO G. BENCH HAND MACHINE-C Ot E55.9 VITAMIN D DEFICIENCY, UNSPECIFIED 09/15/2016 NEW, ERASMO G. BENCH HAND MACHINE-C Ot E66.9 OBESITY, UNSPECIFIED 09/15/2016 NEW, ERASMO G. BENCH HAND MACHINE-C Ot E78.5 HYPERLIPIDEMIA, UNSPECIFIED 09/15/2016 NEW, ERASMO G. BENCH HAND MACHINE-C Ot E83.39 OTHER DISORDERS OF PHOSPHORUS METABOLISM 09/15/2016 NEW, ERASMO G. BENCH HAND MACHINE-C Ot E87.2 ACIDOSIS 09/15/2016 NEW, ERASMO G. BENCH HAND MACHINE-C Ot E88.09 OTH DISORDERS OF PLASMA-PROTEIN METABOLI 09/15/2016 NEW, ERSAMO Mcnamara. BENCH HAND MACHINE-C Ot I12.0 HYP CHR KIDNEY DISEASE W STAGE 5 CHR KID 09/15/2016 NEW, ERASMO Timmons BENCH HAND MACHINE-C Ot N18.5 CHRONIC KIDNEY DISEASE, STAGE 5 09/15/2016 NEW, ERASMO G. BENCH HAND MACHINE-C Ot R31.9 HEMATURIA, UNSPECIFIED 09/15/2016 NEW, ERASMO G. BENCH HAND MACHINE-C Ot R79.89 OTHER SPECIFIED ABNORMAL FINDINGS OF BLO 09/15/2016 NEW, ERASMO G. BENCH HAND MACHINE-C Ot R80.8 OTHER PROTEINURIA 09/25/2016 NEW, ERASMO G. 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 09/25/2016 NEW, ERASMO McnamaraRoberth BENCH HAND MACHINE-C Ot E11.40 TYPE 2 DIABETES MELLITUS WITH DIABETIC N 09/25/2016 NEW ERASMO McnamaraRoberth BENCH HAND MACHINE-C Ot E55.9 VITAMIN D DEFICIENCY, UNSPECIFIED 09/25/2016 NEW ERASMO McnamaraRoberth BENCH HAND MACHINE-C Ot E66.9 OBESITY, UNSPECIFIED 09/25/2016 NEW ERASMO NaimaRoberth BENCH HAND MACHINE-C Ot E78.5 HYPERLIPIDEMIA, UNSPECIFIED 09/25/2016 NEW, ERASMO NaimaRoberth BENCH HAND MACHINE-C Ot E83.39 OTHER DISORDERS OF PHOSPHORUS METABOLISM 09/25/2016 NEW, ERASMO NaimaRoberth BENCH HAND MACHINE-C Ot E87.2 ACIDOSIS 09/25/2016 NEW, ERASMO NaimaRoberth BENCH HAND MACHINE-C Ot E88.09 OTH DISORDERS OF PLASMA-PROTEIN METABOLI 09/25/2016 NEWJUNShai McnamaraRoberth BENCH HAND MACHINE-C Ot I12.0 HYP CHR KIDNEY DISEASE W STAGE 5 CHR KID 09/25/2016 NEW, ERASMO NaimaRoberth BENCH HAND MACHINE-C Ot N18.5 CHRONIC KIDNEY DISEASE, STAGE 5 09/25/2016 NEW, ERASMO GRoberth [employer] MACHINE-C Ot R31.9 HEMATURIA, UNSPECIFIED 09/25/2016 NEW, ERASMO G. [employer] MACHINE-C Ot R79.89 OTHER SPECIFIED ABNORMAL FINDINGS OF BLO 09/25/2016 NEW ERASMO McnamaraRoberth [employer] MACHINE-C Ot R80.8 OTHER PROTEINURIA 12/15/2016 Ot 599.0 URIN TRACT INFECTION NOS 12/15/2016 NEW, ERASMO NaimaRoberth [employer] MACHINE-C Ot 250.40 DIAB W RENAL MANIFEST, TYPE II OR UNSPEC 12/15/2016 NEW, ERASMO NaimaRoberth [employer] MACHINE-C Ot 250.60 DIAB W NEURO MANIFEST, TYPE II OR UNSPEC 12/15/2016 NEW, ERASMO NaimaRoberth [employer] MACHINE-C Ot 272.4 HYPERLIPIDEMIA NEC/NOS 12/15/2016 NEW, ERASMO G. 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 [employer] MACHINE-C Ot 585.4 CHRONIC KIDNEY DISEASE, STAGE IV (SEVERE 12/15/2016 NEW, ERASMO Timmons [employer] MACHINE-C Ot 753.10 CYSTIC KIDNEY DISEASE, UNSPECIFIED 12/15/2016 NEW, ERASMO GRoberth [employer] MACHINE-C Ot 250.40 DIAB W RENAL MANIFEST, TYPE II OR UNSPEC 12/15/2016 NEW, ERASMO McnamaraRoberth [employer]EN[employer] MACHINE-C Ot 250.60 DIAB W NEURO MANIFEST, TYPE II OR UNSPEC 12/15/2016 NEW, ERASMO GRoberth [employer] MACHINE-C Ot 278.00 OBESITY, NOS 12/15/2016 NEW, ERASMO GRoberth [employer] MACHINE-C Ot 357.2 NEUROPATHY IN DIABETES 12/15/2016 NEW, ERASMO McnamaraRoberth 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 12/15/2016 NEW, ERASMO McnamaraRoberth [employer] MACHINE-C Ot 585.4 CHRONIC KIDNEY DISEASE, STAGE IV (SEVERE 12/15/2016 GELGERTRUDE GRIMALDO DO Ot 250.00 DIAB ABDIRAHMAN WO COMPL, TYPE II OR UNSPEC TY 12/15/2016 GERTRUDE NEWSOME DO Ot 593.9 RENAL URETERAL DIS NOS 12/15/2016 NEW, ERASMO McnamaraRoberth [employer] MACHINE-C Ot D63.1 ANEMIA IN CHRONIC KIDNEY DISEASE 12/15/2016 NEW, ERASMO NaimaRoberth BENCH HAND MACHINE-C Ot 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 12/15/2016 NEW, ERASMO GRoberth [employer] MACHINE-C Ot E11.40 TYPE 2 DIABETES MELLITUS WITH DIABETIC N 12/15/2016 NEW, ERASMO NaimaRoberth BENCH [employer] MACHINE-C Ot E55.9 VITAMIN D DEFICIENCY, UNSPECIFIED 12/15/2016 NEW, ERASMO NaimaRoberth [employer] MACHINE-C Ot E66.9 OBESITY, UNSPECIFIED 12/15/2016 NEW, ERASMO GRoberth [employer]ENCH HAND MACHINE-C Ot E87.2 ACIDOSIS 12/15/2016 NEW, ERASMO GRoberth [employer]ENCH [employer] MACHINE-C Ot 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, W S 12/15/2016 NEW, ERASMO NaimaRoberth [employer] MACHINE-C Ot N18.4 CHRONIC KIDNEY DISEASE, STAGE 4 (SEVERE) 12/15/2016 NEWERASMO BENCH HAND MACHINE-C Ot R80.9 PROTEINURIA, UNSPECIFIED 12/15/2016 NEW, ERASMO Timmons [employer] MACHINE-C Ot D63.1 ANEMIA IN CHRONIC KIDNEY DISEASE 12/15/2016 NEWERASMO BENCH HAND MACHINE-C Ot 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 12/15/2016 NEW, ERASMO Timmons [employer] MACHINE-C Ot E11.40 TYPE 2 DIABETES MELLITUS WITH DIABETIC N 12/15/2016 NEW, ERASMO Timmons [employer] MACHINE-C Ot E55.9 VITAMIN D DEFICIENCY, UNSPECIFIED 12/15/2016 NEW, ERASMO Timmons [employer] MACHINE-C Ot E66.9 OBESITY, UNSPECIFIED 12/15/2016 NEW, ERASMO McnamaraRoberth BENCH HAND MACHINE-C Ot E87.2 ACIDOSIS 12/15/2016 NEW, ERASMO McnamaraRoberth BENCH HAND MACHINE-C Ot 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, W S 12/15/2016 NEW, ERASMO NaimaRoberth [employer]EN[employer] MACHINE-C Ot N18.4 CHRONIC KIDNEY DISEASE, STAGE 4 (SEVERE) 12/15/2016 NEW, ERASMO GRoberth [employer]EN[employer] MACHINE-C Ot R80.9 PROTEINURIA, UNSPECIFIED 12/15/2016 NEW, ERASMO McnamaraRoberth BENCH HAND MACHINE-C Ot D63.1 ANEMIA IN CHRONIC KIDNEY DISEASE 12/15/2016 NEW, ERASMO McnamaraRoberth BEN[employer] MACHINE-C Ot 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 12/15/2016 NEW, ERASMO Timmons [employer]EN[employer] MACHINE-C Ot E11.40 TYPE 2 DIABETES MELLITUS WITH DIABETIC N 12/15/2016 NEW, ERASMO Timmons BEN[employer] MACHINE-C Ot E55.9 VITAMIN D DEFICIENCY, UNSPECIFIED 12/15/2016 NEW, ERASMO Timmons B[employer] HAND MACHINE-C Ot E66.9 OBESITY, UNSPECIFIED 12/15/2016 NEW, ERASMO McnamaraRoberth BENCH HAND MACHINE-C Ot E78.5 HYPERLIPIDEMIA, UNSPECIFIED 12/15/2016 NEW, ERASMO McnamaraRoberth BEN[employer] MACHINE-C Ot E83.39 OTHER DISORDERS OF PHOSPHORUS METABOLISM 12/15/2016 NEW, ERASMO GRoberth BENCH HAND MACHINE-C Ot E87.2 ACIDOSIS 12/15/2016 NEW, ERASMO McnamaraRoberth BENCH HAND MACHINE-C Ot E88.09 OTH DISORDERS OF PLASMA-PROTEIN METABOLI 12/15/2016 NEW, ERASMO NaimaRoberth BENCH HAND MACHINE-C Ot I12.0 HYP CHR KIDNEY DISEASE W STAGE 5 CHR KID 12/15/2016 NEW, ERASMO Timmons BENCH [employer] MACHINE-C Ot N18.5 CHRONIC KIDNEY DISEASE, STAGE 5 12/15/2016 NEW, ERASMO Timmons [employer] HAND MACHINE-C Ot R31.9 HEMATURIA, UNSPECIFIED 12/15/2016 NEW, ERASMO Timmons [employer] MACHINE-C Ot R79.89 OTHER SPECIFIED ABNORMAL FINDINGS OF BLO 12/15/2016 NEW, ERASMO GRoberth BENCH HAND MACHINE-C Ot R80.8 OTHER PROTEINURIA 12/15/2016 NEW, ERASMO McnamaraRoberth BENCH [employer] MACHINE-C Ot D63.1 ANEMIA IN CHRONIC KIDNEY DISEASE 12/15/2016 NEW, ERASMO GRoberth BENCH HAND MACHINE-C Ot 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 BENCH HAND MACHINE-C Ot E78.5 HYPERLIPIDEMIA, UNSPECIFIED 12/15/2016 NEW, ERASMO GRoberth BENCH HAND MACHINE-C Ot E83.39 OTHER DISORDERS OF PHOSPHORUS METABOLISM 12/15/2016 NEW, ERASMO NaimaRoberth BENCH HAND MACHINE-C Ot E87.2 ACIDOSIS 12/15/2016 NEW, ERASMO G. BENCH HAND MACHINE-C Ot E88.09 OTH DISORDERS OF PLASMA-PROTEIN METABOLI 12/15/2016 NEW, ERASMO Mcnamara. BENCH HAND MACHINE-C Ot I12.0 HYP CHR KIDNEY DISEASE W STAGE 5 CHR KID 12/15/2016 NEW, ERASMO G. BENCH HAND MACHINE-C Ot N18.5 CHRONIC KIDNEY DISEASE, STAGE 5 12/15/2016 NEW ERASMO Timmons BENCH HAND MACHINE-C Ot R31.9 HEMATURIA, UNSPECIFIED 12/15/2016 NEW ERASMO McnamaraRoberth BENCH HAND MACHINE-C Ot R79.89 OTHER SPECIFIED ABNORMAL FINDINGS OF BLO 12/15/2016 JUN CURTISShai McnamaraRoberth BENCH HAND MACHINE-C Ot R80.8 OTHER PROTEINURIA 05/12/2017 GELLENDER DOGERTRUDE Ot R10.11 RIGHT UPPER QUADRANT PAIN 05/31/2017 GELJOSEDER DOGERTRUDE Ot K57.30 DVRTCLOS OF LG INT W/O PERFORATION OR AB 05/31/2017 GELLENDER DOGERTRUDE Ot N26.1 ATROPHY OF KIDNEY (TERMINAL) 05/31/2017 GELLENDER DOGERTRUDE Ot N28.1 CYST OF KIDNEY, ACQUIRED 06/04/2017 GELJOSEDER GERTRUDE COOK Ot R10.11 RIGHT UPPER QUADRANT PAIN 06/16/2017 GELLENDER GERTRUDE COOK Ot R10.11 RIGHT UPPER QUADRANT PAIN 06/21/2017 MERCEDEZ COOK GERTRUDE Gibbons Ot K57.30 DVRTCLOS OF LG INT W/O PERFORATION OR AB 06/21/2017 GERTRUDE NEWSOME DO Ot N26.1 ATROPHY OF KIDNEY (TERMINAL) 06/21/2017 GERTRUDE NEWSOME DO Ot N28.1 CYST OF KIDNEY, ACQUIRED 08/07/2017 VIJAYJENNIFER Daniels AMUSEMENT RIDE OPERATOR Ot 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4 RETIREMENT (CURRENT) USE OF INSULIN 08/07/2017 VIJAY JENNIFER AMUSEMENT RIDE OPERATOR Ot Z79.82 RETIREMENT (CURRENT) USE OF ASPIRIN 08/07/2017 VIJAY JENNIFER AMUSEMENT RIDE OPERATOR Ot Z79.84 SPLUNK CONSULTANT (CURRENT) USE OF ORAL HYPOGLYC 08/07/2017 VIJAY JENNIFER AMUSEMENT RIDE OPERATOR Ot Z82.49 FAMILY HX OF ISCHEM HEART DIS AND OTH DI 08/07/2017 VIJAY JENNIFER AMUSEMENT RIDE OPERATOR Ot Z86.010 PERSONAL HISTORY OF COLONIC POLYPS 08/07/2017 VIJAY JENNIFER AMUSEMENT RIDE OPERATOR Ot Z87.19 PERSONAL HISTORY OF OTHER DISEASES OF TH 08/07/2017 VIJAY JENNIFER AMUSEMENT RIDE OPERATOR Ot Z99.2 DEPENDENCE ON RENAL DIALYSIS 08/10/2017 VIJAY, JENNIFER AMUSEMENT RIDE OPERATOR Ot 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 08/10/2017 VIJAY, JENNIFER AMUSEMENT RIDE OPERATOR Ot F32.9 MAJOR DEPRESSIVE DISORDER, SINGLE EPISOD 08/10/2017 VIJAY, JENNIFER AMUSEMENT RIDE OPERATOR Ot F41.9 ANXIETY DISORDER, UNSPECIFIED 08/10/2017 VIJAY, JENNIFER AMUSEMENT RIDE OPERATOR Ot I12.0 HYP CHR KIDNEY DISEASE W STAGE 5 CHR KID 08/10/2017 VIJAYJENNIFER Daniels AMUSEMENT RIDE OPERATOR Ot 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 08/10/2017 JENNIFER LINARESP Ot K92.1 MELENA 08/10/2017 JENNIFER LINARES AMUSEMENT RIDE OPERATOR Ot N18.6 END STAGE RENAL DISEASE 08/10/2017 VIJAYJENNIFER DanielsP Ot 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 08/10/2017 JENNIFER LINARESP Ot Z79.82 SPLUNK CONSULTANT (CURRENT) USE OF ASPIRIN 08/10/2017 JENNIFER LINARESP Ot Z79.84 RETIREMENT (CURRENT) USE OF ORAL HYPOGLYC 08/10/2017 JENNIFER LINARESP Ot Z82.49 FAMILY HX OF ISCHEM HEART DIS AND OTH DI 08/10/2017 JENNIFER LINARESP Ot Z86.010 PERSONAL HISTORY OF COLONIC POLYPS 08/10/2017 JENNIFER LINARESP Ot Z87.19 PERSONAL HISTORY OF OTHER DISEASES OF TH 08/10/2017 JENNIFER LINARESP Ot Z99.2 DEPENDENCE ON RENAL DIALYSIS 10/06/2017 CORBY ELIZABETH APRN Ot 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 10/06/2017 CORBY ELIZABETH APRN Ot F32.9 MAJOR DEPRESSIVE DISORDER, SINGLE EPISOD 10/06/2017 CORBY ELIZABETH APRN Ot F41.9 ANXIETY DISORDER, UNSPECIFIED 10/06/2017 CORBY ELIZABETH APRN Ot I12.0 HYP CHR KIDNEY DISEASE W STAGE 5 CHR KID 10/06/2017 CORBY ELIZABETH APRN Ot I48.0 PAROXYSMAL ATRIAL FIBRILLATION 10/06/2017 CORBY ELIZABETH APRN Ot K21.9 GASTRO-ESOPHAGEAL REFLUX DISEASE WITHOUT 10/06/2017 CORBY ELIZABETH APRN Ot M19.90 UNSPECIFIED OSTEOARTHRITIS, UNSPECIFIED 10/06/2017 CORBY ELIZABETH APRN Ot N18.6 END STAGE RENAL DISEASE 10/06/2017 CORBY ELIZABETH APRN Ot R00.0 TACHYCARDIA, UNSPECIFIED 10/06/2017 CORBY ELIZABETH APRN Ot Z79.4 RETIREMENT (CURRENT) USE OF INSULIN 10/06/2017 CORBY ELIZABETH APRN Ot Z79.82 RETIREMENT (CURRENT) USE OF ASPIRIN 10/06/2017 ELIZABETH, PETER J BAR WELDER Ot Z82.49 FAMILY HX OF ISCHEM HEART DIS AND OTH DI 10/06/2017 CORBY ELIZABETH BAR WELDER Ot Z86.010 PERSONAL HISTORY OF COLONIC POLYPS 10/06/2017 CORBY ELIZABETH BAR WELDER Ot Z87.01 PERSONAL HISTORY OF PNEUMONIA (RECURRENT 10/06/2017 CORBY ELIZABETH BAR WELDER Ot Z99.2 DEPENDENCE ON RENAL DIALYSIS 01/25/2018 Ot 599.0 URIN TRACT INFECTION NOS 01/25/2018 NEW, ERASMO G. BENCH HAND MACHINE-C Ot 250.40 DIAB W RENAL MANIFEST, TYPE II OR UNSPEC 01/25/2018 NEW, ERASMO G. BENCH HAND MACHINE-C Ot 250.60 DIAB W NEURO MANIFEST, TYPE II OR UNSPEC 01/25/2018 NEW, ERASMO G. BENCH HAND MACHINE-C Ot 272.4 HYPERLIPIDEMIA NEC/NOS 01/25/2018 NEW, ERASMO G. BENCH HAND MACHINE-C Ot 278.00 OBESITY, NOS 01/25/2018 NEW, ERASMO G. BENCH HAND MACHINE-C Ot 355.9 MONONEURITIS NOS 01/25/2018 NEW, ERASMO G. 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 BENCH HAND MACHINE-C Ot 585.4 CHRONIC KIDNEY DISEASE, STAGE IV (SEVERE 01/25/2018 NEW, ERASMO G. BENCH HAND MACHINE-C Ot 753.10 CYSTIC KIDNEY DISEASE, UNSPECIFIED 01/25/2018 NEW, ERASMO G. BENCH HAND MACHINE-C Ot 250.40 DIAB W RENAL MANIFEST, TYPE II OR UNSPEC 01/25/2018 NEW, ERASMO G. BENCH HAND MACHINE-C Ot 250.60 DIAB W NEURO MANIFEST, TYPE II OR UNSPEC 01/25/2018 NEW, ERASMO G. BENCH HAND MACHINE-C Ot 278.00 OBESITY, NOS 01/25/2018 NEW, ERASMO G. BENCH HAND MACHINE-C Ot 357.2 NEUROPATHY IN DIABETES 01/25/2018 NEW, ERASMO G. 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 01/25/2018 NEW, ERASMO Timmons BENCH HAND MACHINE-C Ot E11.40 TYPE 2 DIABETES MELLITUS WITH DIABETIC N 01/25/2018 NEW, ERASMO NaimaRoberth BENCH HAND MACHINE-C Ot E55.9 VITAMIN D DEFICIENCY, UNSPECIFIED 01/25/2018 NEW, ERASMO GRoberth BENCH HAND MACHINE-C Ot E66.9 OBESITY, UNSPECIFIED 01/25/2018 NEW, ERASMO GRoberth BENCH HAND MACHINE-C Ot E87.2 ACIDOSIS 01/25/2018 NEW, ERASMO GRoberth BENCH HAND MACHINE-C Ot 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, W S 01/25/2018 NEW, ERASMO Timmons BENCH HAND MACHINE-C Ot N18.4 CHRONIC KIDNEY DISEASE, STAGE 4 (SEVERE) 01/25/2018 NEW, ERASMO NaimaRoberth BENCH HAND MACHINE-C Ot R80.9 PROTEINURIA, UNSPECIFIED 01/25/2018 NEW, ERASMO GRoberth BENCH HAND MACHINE-C Ot D63.1 ANEMIA IN CHRONIC KIDNEY DISEASE 01/25/2018 NEW, ERASMO GRoberth BENCH HAND MACHINE-C Ot 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 01/25/2018 NEW, ERASMO Timmons BENCH HAND MACHINE-C Ot E11.40 TYPE 2 DIABETES MELLITUS WITH DIABETIC N 01/25/2018 NEW, ERASMO NaimaRoberth BENCH HAND MACHINE-C Ot E55.9 VITAMIN D DEFICIENCY, UNSPECIFIED 01/25/2018 NEW, ERASMO NaimaRoberth BENCH HAND MACHINE-C Ot E66.9 OBESITY, UNSPECIFIED 01/25/2018 NEW, ERASMO McnamaraRoberth BENCH HAND MACHINE-C Ot E87.2 ACIDOSIS 01/25/2018 NEW, ERASMO GRoberth BENCH HAND MACHINE-C Ot 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 BENCH HAND MACHINE-C Ot E11.40 TYPE 2 DIABETES MELLITUS WITH DIABETIC N 01/25/2018 NEW, ERASMO G. BENCH HAND MACHINE-C Ot E55.9 VITAMIN D DEFICIENCY, UNSPECIFIED 01/25/2018 NEW, ERASMO G. BENCH HAND MACHINE-C Ot E66.9 OBESITY, UNSPECIFIED 01/25/2018 NEW, ERASMO G. BENCH HAND MACHINE-C Ot E78.5 HYPERLIPIDEMIA, UNSPECIFIED 01/25/2018 NEW, ERASMO G. BENCH HAND MACHINE-C Ot E83.39 OTHER DISORDERS OF PHOSPHORUS METABOLISM 01/25/2018 NEW, ERASMO G. BENCH HAND MACHINE-C Ot E87.2 ACIDOSIS 01/25/2018 NEW, ERASMO G. BENCH HAND MACHINE-C Ot E88.09 OTH DISORDERS OF PLASMA-PROTEIN METABOLI 01/25/2018 NEW, ERASMO G. 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 BENCH HAND MACHINE-C Ot N18.5 CHRONIC KIDNEY DISEASE, STAGE 5 01/25/2018 NEW, ERASMO G. BENCH HAND MACHINE-C Ot R31.9 HEMATURIA, UNSPECIFIED 01/25/2018 NEW, ERASMO G. BENCH HAND MACHINE-C Ot R79.89 OTHER SPECIFIED ABNORMAL FINDINGS OF BLO 01/25/2018 NEW, ERASMO G. BENCH HAND MACHINE-C Ot R80.8 OTHER PROTEINURIA 01/25/2018 NEW, ERASMO G. BENCH HAND MACHINE-C Ot D63.1 ANEMIA IN CHRONIC KIDNEY DISEASE 01/25/2018 NEW, ERASMO G. 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 BENCH HAND MACHINE-C Ot E11.40 TYPE 2 DIABETES MELLITUS WITH DIABETIC N 01/25/2018 NEW, ERASMO G. BENCH HAND MACHINE-C Ot E55.9 VITAMIN D DEFICIENCY, UNSPECIFIED 01/25/2018 NEW, ERASMO G. BENCH HAND MACHINE-C Ot E66.9 OBESITY, UNSPECIFIED 01/25/2018 NEW, ERASMO G. BENCH HAND MACHINE-C Ot E78.5 HYPERLIPIDEMIA, UNSPECIFIED 01/25/2018 NEW, ERASMO G. BENCH HAND MACHINE-C Ot E83.39 OTHER DISORDERS OF PHOSPHORUS METABOLISM 01/25/2018 NEW, ERASMO G. BENCH HAND MACHINE-C Ot E87.2 ACIDOSIS 01/25/2018 NEW, ERASMO G. 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 01/25/2018 NEW, ERASMO Timmons BENCH HAND MACHINE-C Ot N18.5 CHRONIC KIDNEY DISEASE, STAGE 5 01/25/2018 NEW, ERASMO Timmons BENCH HAND MACHINE-C Ot R31.9 HEMATURIA, UNSPECIFIED 01/25/2018 NEW, ERASMO Timmons BENCH HAND MACHINE-C Ot R79.89 OTHER SPECIFIED ABNORMAL FINDINGS OF BLO 01/25/2018 NEW, ERASMO Timmons BENCH HAND MACHINE-C Ot R80.8 OTHER PROTEINURIA 01/25/2018 GELLENDER DO, GERTRUDE Gibbons Ot R10.11 RIGHT UPPER QUADRANT PAIN 01/25/2018 GELLENDER DO, GERTRUDE Gibbons Ot R10.11 RIGHT UPPER QUADRANT PAIN 01/25/2018 GELLENDER DO, GERTRUDE Gibbons Ot K57.30 DVRTCLOS OF LG INT W/O PERFORATION OR AB 01/25/2018 GELLENDER DO, GERTRUDE Gibbons Ot N26.1 ATROPHY OF KIDNEY (TERMINAL) 01/25/2018 GELLENDER DO, GERTRUDE Gibbons Ot N28.1 CYST OF KIDNEY, ACQUIRED 01/27/2018 GELLENDER DO, GERTRUDE Gibbons Ot R10.11 RIGHT UPPER QUADRANT PAIN 01/28/2018 GELLENDER DO, GERTRUDE Gibbons Ot K57.30 DVRTCLOS OF LG INT W/O PERFORATION OR AB 01/28/2018 GELLENDER DO, GERTRUDE Gibbons Ot K57.30 DVRTCLOS OF LG INT W/O PERFORATION OR AB 02/02/2018 GELLENDER DO, GERTRUDE Gibbons Ot K57.30 DVRTCLOS OF LG INT W/O PERFORATION OR AB 02/14/2018 GELLENDER DO, GERTRUDE Gibbons Ot R10.11 RIGHT UPPER QUADRANT PAIN 02/25/2018 MILEY VILLA, RENEE Eduardo Ot Z01.818 ENCOUNTER FOR OTHER PREPROCEDURAL EXAMIN 02/25/2018 GELLENDER DO, GERTRUDE Gibbons Ot R10.11 RIGHT UPPER QUADRANT PAIN 03/02/2018 MILEY VILLA, RENEE Eduardo Ot E11.9 TYPE 2 DIABETES MELLITUS WITHOUT COMPLIC 03/02/2018 MILEY VILLA, RENEE Eduardo Ot E78.5 HYPERLIPIDEMIA, UNSPECIFIED 03/02/2018 MILEY VILLA, RENEE M Ot F32.9 MAJOR DEPRESSIVE DISORDER, SINGLE EPISOD 03/02/2018 RENEE TRENT MD Ot I10 ESSENTIAL (PRIMARY) HYPERTENSION 03/02/2018 MILEY VILLA, RENEE Eduardo Ot I48.91 UNSPECIFIED ATRIAL FIBRILLATION 03/02/2018 RENEE TRENT MD Ot K21.9 GASTRO-ESOPHAGEAL REFLUX DISEASE WITHOUT 03/02/2018 MILEY VILLA, RENEE Eduardo Ot K81.1 CHRONIC CHOLECYSTITIS 03/02/2018 RENEE TRENT MD Ot Z11.2 ENCOUNTER FOR SCREENING FOR OTHER BACTER 03/02/2018 RENEE TRENT MD Ot Z79.84 RETIREMENT (CURRENT) USE OF ORAL HYPOGLYC 03/02/2018 RENEE TRENT MD Ot Z79.899 OTHER SPLUNK CONSULTANT (CURRENT) DRUG THERAPY 03/03/2018 RENEE TRENT MD Ot E11.9 TYPE 2 DIABETES MELLITUS WITHOUT COMPLIC 03/03/2018 RENEE TRENT MD Ot E78.5 HYPERLIPIDEMIA, UNSPECIFIED 03/03/2018 RENEE TRENT MD Ot F32.9 MAJOR DEPRESSIVE DISORDER, SINGLE EPISOD 03/03/2018 RENEE TRENT MD Ot I10 ESSENTIAL (PRIMARY) HYPERTENSION 03/03/2018 RENEE TRENT MD Ot I48.91 UNSPECIFIED ATRIAL FIBRILLATION 03/03/2018 RENEE TRENT MD Ot K21.9 GASTRO-ESOPHAGEAL REFLUX DISEASE WITHOUT 03/03/2018 RENEE TRENT MD Ot K81.1 CHRONIC CHOLECYSTITIS 03/03/2018 RENEE TRENT MD Ot Z11.2 ENCOUNTER FOR SCREENING FOR OTHER BACTER 03/03/2018 RENEE TRENT MD Ot Z79.84 RETIREMENT (CURRENT) USE OF ORAL HYPOGLYC 03/03/2018 RENEE TRENT MD Ot Z79.899 OTHER RETIREMENT (CURRENT) DRUG THERAPY 03/04/2018 GERTRUDE NEWSOME DO Ot R10.11 RIGHT UPPER QUADRANT PAIN 03/08/2018 RENEE TRENT MD Ot E11.9 TYPE 2 DIABETES MELLITUS WITHOUT COMPLIC 03/08/2018 RENEE TRENT MD Ot E78.5 HYPERLIPIDEMIA, UNSPECIFIED 03/08/2018 RENEE TRENT MD Ot F32.9 MAJOR DEPRESSIVE DISORDER, SINGLE EPISOD 03/08/2018 RENEE TRENT MD Ot I10 ESSENTIAL (PRIMARY) HYPERTENSION 03/08/2018 RENEE TRENT MD Ot I48.91 UNSPECIFIED ATRIAL FIBRILLATION 03/08/2018 RENEE TRENT MD Ot K21.9 GASTRO-ESOPHAGEAL REFLUX DISEASE WITHOUT 03/08/2018 RENEE TRENT MD Ot K81.1 CHRONIC CHOLECYSTITIS 03/08/2018 RENEE TRENT MD Ot Z11.2 ENCOUNTER FOR SCREENING FOR OTHER BACTER 03/08/2018 RENEE TRENT MD Ot Z79.84 RETIREMENT (CURRENT) USE OF ORAL HYPOGLYC 03/08/2018 RENEE TRENT MD Ot Z79.899 OTHER SPLUNK CONSULTANT (CURRENT) DRUG THERAPY 03/09/2018 GELLENDER DO, GERTRUDE A Ot R10.11 RIGHT UPPER QUADRANT PAIN 03/09/2018 GELLENDER DO, GERTRUDE A Ot R10.11 RIGHT UPPER QUADRANT PAIN 03/12/2018 RENEE TRENT MD Ot E11.9 TYPE 2 DIABETES MELLITUS WITHOUT COMPLIC 03/12/2018 RENEE TRENT MD Ot E78.5 HYPERLIPIDEMIA, UNSPECIFIED 03/12/2018 RENEE TRENT MD Ot F32.9 MAJOR DEPRESSIVE DISORDER, SINGLE EPISOD 03/12/2018 RENEE TRENT MD Ot I10 ESSENTIAL (PRIMARY) HYPERTENSION 03/12/2018 RENEE TRENT MD Ot I48.91 UNSPECIFIED ATRIAL FIBRILLATION 03/12/2018 RENEE TRENT MD Ot K21.9 GASTRO-ESOPHAGEAL REFLUX DISEASE WITHOUT 03/12/2018 RENEE TRENT MD Ot K81.1 CHRONIC CHOLECYSTITIS 03/12/2018 RENEE TRENT MD Ot Z11.2 ENCOUNTER FOR SCREENING FOR OTHER BACTER 03/12/2018 RENEE TRENT MD Ot Z79.84 RETIREMENT (CURRENT) USE OF ORAL HYPOGLYC 03/12/2018 RENEE TRENT MD Ot Z79.899 OTHER SPLUNK CONSULTANT (CURRENT) DRUG THERAPY Procedures Code Description Performed By Performed On 45.13 OTHER ENDOSCOPY OF SM INTEST 03/01/2011 45.13 OTHER ENDOSCOPY OF SM INTEST 03/02/2011 44.43 ENDOSCOPIC CONTROL OF GASTRIC OR DUODENA 03/03/2011 45.13 OTHER ENDOSCOPY OF SM INTEST 03/03/2011 Results Test Result Range Serum or plasma renal function panel (Na, K, Cl, CO2, BUN, Cr, glucose,Ca, phos , alb) - 08/21/16 09:37 Serum or plasma sodium measurement (moles/volume) 138 mmol/L 135-145 Serum or plasma potassium measurement (moles/volume) 4.4 mmol/L 3.6-5.0 Serum or plasma chloride measurement (moles/volume) 103 mmol/L 98-107 Carbon dioxide 26 mmol/L 21-32 Serum or plasma anion gap determination (moles/volume) 9 mmol/L 5-14 Serum or plasma urea nitrogen measurement (mass/volume) 47 mg/dL 7-18 Serum or plasma creatinine measurement (mass/volume) 3.47 mg/dL 0.60-1.30 Serum or plasma urea nitrogen/creatinine mass ratio 14 NRG Serum or plasma creatinine measurement with calculation of estimated glomerular filtration rate 13 NRG Serum or plasma glucose measurement (mass/volume) 176 mg/dL 70-105 Serum or plasma calcium measurement (mass/volume) 9.5 mg/dL 8.5-10.1 Serum or plasma albumin measurement (mass/volume) 3.6 g/dL 3.2-4.5 Serum or plasma phosphate measurement (mass/volume) 4.7 mg/dL 2.3-4.7 Complete blood count (CBC) with automated white blood cell (WBC) differential - 08/24/16 09:10 Blood leukocytes automated count (number/volume) 8.0 10*3/uL 4.3-11.0 Blood erythrocytes automated count (number/volume) 4.00 10*6/uL 4.35-5.85 Venous blood hemoglobin measurement (mass/volume) 11.8 g/dL 11.5-16.0 Blood hematocrit (volume fraction) 33 % 35-52 Automated erythrocyte mean corpuscular volume 83 [foz_us] 80-99 Automated erythrocyte mean corpuscular hemoglobin (mass per erythrocyte) 30 pg 25-34 Automated erythrocyte mean corpuscular hemoglobin concentration measurement ( mass/volume) 36 g/dL 32-36 Automated erythrocyte distribution width ratio 13.0 % 10.0-14.5 Automated blood platelet count (count/volume) 187 10*3/uL 130-400 Automated blood platelet mean volume measurement 8.9 [foz_us] 7.4-10.4 Automated blood neutrophils/100 leukocytes 75 % 42-75 Automated blood lymphocytes/100 leukocytes 16 % 12-44 Blood monocytes/100 leukocytes 6 % 0-12 Automated blood eosinophils/100 leukocytes 3 % 0-10 Automated blood basophils/100 leukocytes 0 % 0-10 Blood neutrophils automated count (number/volume) 6.0 10*3 1.8-7.8 Blood lymphocytes automated count (number/volume) 1.3 10*3 1.0-4.0 Blood monocytes automated count (number/volume) 0.5 10*3 0.0-1.0 Automated eosinophil count 0.2 10*3/uL 0.0-0.3 Automated blood basophil count (count/volume) 0.0 10*3/uL 0.0-0.1 Comprehensive metabolic panel - 08/24/16 09:10 Serum or plasma sodium measurement (moles/volume) 137 mmol/L 135-145 Serum or plasma potassium measurement (moles/volume) 3.7 mmol/L 3.6-5.0 Serum or plasma chloride measurement (moles/volume) 101 mmol/L 98-107 Carbon dioxide 24 mmol/L 21-32 Serum or plasma anion gap determination (moles/volume) 12 mmol/L 5-14 Serum or plasma urea nitrogen measurement (mass/volume) 36 mg/dL 7-18 Serum or plasma creatinine measurement (mass/volume) 3.41 mg/dL 0.60-1.30 Serum or plasma urea nitrogen/creatinine mass ratio 11 NRG Serum or plasma creatinine measurement with calculation of estimated glomerular filtration rate 13 NRG Serum or plasma glucose measurement (mass/volume) 220 mg/dL 70-105 Serum or plasma calcium measurement (mass/volume) 10.0 mg/dL 8.5-10.1 Serum or plasma total bilirubin measurement (mass/volume) 0.6 mg/dL 0.1-1.0 Serum or plasma alkaline phosphatase measurement (enzymatic activity/volume) 59 U/L 40-136 Serum or plasma aspartate aminotransferase measurement (enzymatic activity/ volume) 29 U/L 5-34 Serum or plasma alanine aminotransferase measurement (enzymatic activity/volume ) 33 U/L 0-55 Serum or plasma protein measurement (mass/volume) 7.4 g/dL 6.4-8.2 Serum or plasma albumin measurement (mass/volume) 4.0 g/dL 3.2-4.5 Magnesium - 08/24/16 09:10 Magnesium 2.1 mg/dL 1.8-2.4 Serum or plasma C reactive protein measurement (mass/volume) - 08/24/16 09:10 Serum or plasma C reactive protein measurement (mass/volume) 3.14 mg /dL 0.00-0.50 Capillary blood glucose measurement by glucometer (mass/volume) - 08/24/16 09: 13 Capillary blood glucose measurement by glucometer (mass/volume) 222 mg/dL 70-110 Blood lactic acid measurement (moles/volume) - 08/24/16 10:05 Blood lactic acid measurement (moles/volume) 1.2 mmol/L 0.5-2.0 Bacterial blood culture - 08/24/16 10:05 Bacterial blood culture NG NRG Bacterial blood culture - 08/24/16 10:20 Bacterial blood culture NG NRG Capillary blood glucose measurement by glucometer (mass/volume) - 08/24/16 14: 57 Capillary blood glucose measurement by glucometer (mass/volume) 257 mg/dL 70-110 Capillary blood glucose measurement by glucometer (mass/volume) - 08/24/16 19: 49 Capillary blood glucose measurement by glucometer (mass/volume) 137 mg/dL 70-110 Capillary blood glucose measurement by glucometer (mass/volume) - 08/25/16 00: 33 Capillary blood glucose measurement by glucometer (mass/volume) 96 mg/dL 70-110 Capillary blood glucose measurement by glucometer (mass/volume) - 08/25/16 06: 00 Capillary blood glucose measurement by glucometer (mass/volume) 125 mg/dL 70-110 Complete blood count (CBC) with automated white blood cell (WBC) differential - 08/25/16 06:12 Blood leukocytes automated count (number/volume) 4.5 10*3/uL 4.3-11.0 Blood erythrocytes automated count (number/volume) 3.25 10*6/uL 4.35-5.85 Venous blood hemoglobin measurement (mass/volume) 9.6 g/dL 11.5-16.0 Blood hematocrit (volume fraction) 28 % 35-52 Automated erythrocyte mean corpuscular volume 85 [foz_us] 80-99 Automated erythrocyte mean corpuscular hemoglobin (mass per erythrocyte) 30 pg 25-34 Automated erythrocyte mean corpuscular hemoglobin concentration measurement ( mass/volume) 35 g/dL 32-36 Automated erythrocyte distribution width ratio 13.0 % 10.0-14.5 Automated blood platelet count (count/volume) 175 10*3/uL 130-400 Automated blood platelet mean volume measurement 8.4 [foz_us] 7.4-10.4 Automated blood neutrophils/100 leukocytes 72 % 42-75 Automated blood lymphocytes/100 leukocytes 19 % 12-44 Blood monocytes/100 leukocytes 7 % 0-12 Automated blood eosinophils/100 leukocytes 2 % 0-10 Automated blood basophils/100 leukocytes 0 % 0-10 Blood neutrophils automated count (number/volume) 3.3 10*3 1.8-7.8 Blood lymphocytes automated count (number/volume) 0.9 10*3 1.0-4.0 Blood monocytes automated count (number/volume) 0.3 10*3 0.0-1.0 Automated eosinophil count 0.1 10*3/uL 0.0-0.3 Automated blood basophil count (count/volume) 0.0 10*3/uL 0.0-0.1 Comprehensive metabolic panel - 08/25/16 06:12 Serum or plasma sodium measurement (moles/volume) 139 mmol/L 135-145 Serum or plasma potassium measurement (moles/volume) 3.9 mmol/L 3.6-5.0 Serum or plasma chloride measurement (moles/volume) 106 mmol/L 98-107 Carbon dioxide 23 mmol/L 21-32 Serum or plasma anion gap determination (moles/volume) 10 mmol/L 5-14 Serum or plasma urea nitrogen measurement (mass/volume) 34 mg/dL 7-18 Serum or plasma creatinine measurement (mass/volume) 3.14 mg/dL 0.60-1.30 Serum or plasma urea nitrogen/creatinine mass ratio 11 [facility] Serum or plasma creatinine measurement with calculation of estimated glomerular filtration rate 14 [facility] Serum or plasma glucose measurement (mass/volume) 120 mg/dL 70-105 Serum or plasma calcium measurement (mass/volume) 8.9 mg/dL 8.5-10.1 Serum or plasma total bilirubin measurement (mass/volume) 0.4 mg/dL 0.1-1.0 Serum or plasma alkaline phosphatase measurement (enzymatic activity/volume) 46 U/L 40-136 Serum or plasma aspartate aminotransferase measurement (enzymatic activity/ volume) 27 U/L 5-34 Serum or plasma alanine aminotransferase measurement (enzymatic activity/volume ) 28 U/L 0-55 Serum or plasma protein measurement (mass/volume) 6.1 g/dL 6.4-8.2 Serum or plasma albumin measurement (mass/volume) 3.3 g/dL 3.2-4.5 Capillary blood glucose measurement by glucometer (mass/volume) - 08/25/16 09: 28 Capillary blood glucose measurement by glucometer (mass/volume) 135 mg/dL 70-110 Capillary blood glucose measurement by glucometer (mass/volume) - 08/25/16 15: 22 Capillary blood glucose measurement by glucometer (mass/volume) 274 mg/dL 70-110 Capillary blood glucose measurement by glucometer (mass/volume) - 08/25/16 20: 31 Capillary blood glucose measurement by glucometer (mass/volume) 208 mg/dL 70-110 Complete blood count (CBC) with automated white blood cell (WBC) differential - 08/26/16 05:23 Blood leukocytes automated count (number/volume) 4.2 10*3/uL 4.3-11.0 Blood erythrocytes automated count (number/volume) 2.96 10*6/uL 4.35-5.85 Venous blood hemoglobin measurement (mass/volume) 9.2 g/dL 11.5-16.0 Blood hematocrit (volume fraction) 26 % 35-52 Automated erythrocyte mean corpuscular volume 87 [foz_us] 80-99 Automated erythrocyte mean corpuscular hemoglobin (mass per erythrocyte) 31 pg 25-34 Automated erythrocyte mean corpuscular hemoglobin concentration measurement ( mass/volume) 36 g/dL 32-36 Automated erythrocyte distribution width ratio 13.1 % 10.0-14.5 Automated blood platelet count (count/volume) 169 10*3/uL 130-400 Automated blood platelet mean volume measurement 9.1 [foz_us] 7.4-10.4 Automated blood neutrophils/100 leukocytes 66 % 42-75 Automated blood lymphocytes/100 leukocytes 22 % 12-44 Blood monocytes/100 leukocytes 7 % 0-12 Automated blood eosinophils/100 leukocytes 5 % 0-10 Automated blood basophils/100 leukocytes 1 % 0-10 Blood neutrophils automated count (number/volume) 2.8 10*3 1.8-7.8 Blood lymphocytes automated count (number/volume) 0.9 10*3 1.0-4.0 Blood monocytes automated count (number/volume) 0.3 10*3 0.0-1.0 Automated eosinophil count 0.2 10*3/uL 0.0-0.3 Automated blood basophil count (count/volume) 0.0 10*3/uL 0.0-0.1 Whole blood basic metabolic panel - 08/26/16 05:23 Serum or plasma sodium measurement (moles/volume) 139 mmol/L 135-145 Serum or plasma potassium measurement (moles/volume) 3.8 mmol/L 3.6-5.0 Serum or plasma chloride measurement (moles/volume) 109 mmol/L 98-107 Carbon dioxide 23 mmol/L 21-32 Serum or plasma anion gap determination (moles/volume) 7 mmol/L 5-14 Serum or plasma urea nitrogen measurement (mass/volume) 37 mg/dL 7-18 Serum or plasma creatinine measurement (mass/volume) 3.24 mg/dL 0.60-1.30 Serum or plasma urea nitrogen/creatinine mass ratio 11 NRG Serum or plasma creatinine measurement with calculation of estimated glomerular filtration rate 14 NRG Serum or plasma glucose measurement (mass/volume) 138 mg/dL 70-105 Serum or plasma calcium measurement (mass/volume) 8.7 mg/dL 8.5-10.1 Capillary blood glucose measurement by glucometer (mass/volume) - 08/26/16 06: 05 Capillary blood glucose measurement by glucometer (mass/volume) 139 mg/dL 70-110 Capillary blood glucose measurement by glucometer (mass/volume) - 08/26/16 10: 52 Capillary blood glucose measurement by glucometer (mass/volume) 250 mg/dL 70-110 Serum or plasma renal function panel (Na, K, Cl, CO2, BUN, Cr, glucose,Ca, phos , alb) - 09/04/16 08:50 Serum or plasma sodium measurement (moles/volume) 139 mmol/L 135-145 Serum or plasma potassium measurement (moles/volume) 4.4 mmol/L 3.6-5.0 Serum or plasma chloride measurement (moles/volume) 107 mmol/L 98-107 Carbon dioxide 21 mmol/L 21-32 Serum or plasma anion gap determination (moles/volume) 11 mmol/L 5-14 Serum or plasma urea nitrogen measurement (mass/volume) 63 mg/dL 7-18 Serum or plasma creatinine measurement (mass/volume) 2.86 mg/dL 0.60-1.30 Serum or plasma urea nitrogen/creatinine mass ratio 22 NRG Serum or plasma creatinine measurement with calculation of estimated glomerular filtration rate 16 NRG Serum or plasma glucose measurement (mass/volume) 109 mg/dL 70-105 Serum or plasma calcium measurement (mass/volume) 9.7 mg/dL 8.5-10.1 Serum or plasma albumin measurement (mass/volume) 3.7 g/dL 3.2-4.5 Serum or plasma phosphate measurement (mass/volume) 5.2 mg/dL 2.3-4.7 Complete blood count (CBC) with automated white blood cell (WBC) differential - 08/07/17 14:45 Blood leukocytes automated count (number/volume) 5.7 10*3/uL 4.3-11.0 Blood erythrocytes automated count (number/volume) 3.81 10*6/uL 4.35-5.85 Venous blood hemoglobin measurement (mass/volume) 12.4 g/dL 11.5-16.0 Blood hematocrit (volume fraction) 36 % 35-52 Automated erythrocyte mean corpuscular volume 95 [foz_us] 80-99 Automated erythrocyte mean corpuscular hemoglobin (mass per erythrocyte) 33 pg 25-34 Automated erythrocyte mean corpuscular hemoglobin concentration measurement ( mass/volume) 34 g/dL 32-36 Automated erythrocyte distribution width ratio 14.0 % 10.0-14.5 Automated blood platelet count (count/volume) 190 10*3/uL 130-400 Automated blood platelet mean volume measurement 8.6 [foz_us] 7.4-10.4 Automated blood neutrophils/100 leukocytes 69 % 42-75 Automated blood lymphocytes/100 leukocytes 21 % 12-44 Blood monocytes/100 leukocytes 7 % 0-12 Automated blood eosinophils/100 leukocytes 2 % 0-10 Automated blood basophils/100 leukocytes 1 % 0-10 Blood neutrophils automated count (number/volume) 4.0 10*3 1.8-7.8 Blood lymphocytes automated count (number/volume) 1.2 10*3 1.0-4.0 Blood monocytes automated count (number/volume) 0.4 10*3 0.0-1.0 Automated eosinophil count 0.1 10*3/uL 0.0-0.3 Automated blood basophil count (count/volume) 0.0 10*3/uL 0.0-0.1 PT panel in platelet poor plasma by coagulation assay - 08/07/17 14:45 Prothrombin time (PT) in platelet poor plasma by coagulation assay 13.0 s 12.2-14.7 INR in platelet poor plasma or blood by coagulation assay 1.0 0.8-1.4 Activated partial thromboplastin time (aPTT) in platelet poor plasma bycoagulation assay - 08/07/17 14:45 Activated partial thromboplastin time (aPTT) in platelet poor plasma bycoagulation assay 28 s 24-35 Comprehensive metabolic panel - 08/07/17 14:45 Serum or plasma sodium measurement (moles/volume) 138 mmol/L 135-145 Serum or plasma potassium measurement (moles/volume) 3.9 mmol/L 3.6-5.0 Serum or plasma chloride measurement (moles/volume) 96 mmol/L 98-107 Carbon dioxide 28 mmol/L 21-32 Serum or plasma anion gap determination (moles/volume) 14 mmol/L 5-14 Serum or plasma urea nitrogen measurement (mass/volume) 15 mg/dL 7-18 Serum or plasma creatinine measurement (mass/volume) 2.18 mg/dL 0.60-1.30 Serum or plasma urea nitrogen/creatinine mass ratio 7 NRG Serum or plasma creatinine measurement with calculation of estimated glomerular filtration rate 22 NRG Serum or plasma glucose measurement (mass/volume) 148 mg/dL 70-105 Serum or plasma calcium measurement (mass/volume) 9.7 mg/dL 8.5-10.1 Serum or plasma total bilirubin measurement (mass/volume) 0.5 mg/dL 0.1-1.0 Serum or plasma alkaline phosphatase measurement (enzymatic activity/volume) 75 U/L 40-136 Serum or plasma aspartate aminotransferase measurement (enzymatic activity/ volume) 26 U/L 5-34 Serum or plasma alanine aminotransferase measurement (enzymatic activity/volume ) 28 U/L 0-55 Serum or plasma protein measurement (mass/volume) 7.6 g/dL 6.4-8.2 Serum or plasma albumin measurement (mass/volume) 4.1 g/dL 3.2-4.5 Blood type T Indirect antibody screen panel - 08/07/17 14:45 ABO+Rh group AP NRG Transfusion band number [id number] NRG Blood group antibody screen NEGATIVE NRG Complete blood count (CBC) with automated white blood cell (WBC) differential - 10/06/17 14:40 Blood leukocytes automated count (number/volume) 5.3 10*3/uL 4.3-11.0 Blood erythrocytes automated count (number/volume) 3.50 10*6/uL 4.35-5.85 Venous blood hemoglobin measurement (mass/volume) 11.5 g/dL 11.5-16.0 Blood hematocrit (volume fraction) 33 % 35-52 Automated erythrocyte mean corpuscular volume 95 [foz_us] 80-99 Automated erythrocyte mean corpuscular hemoglobin (mass per erythrocyte) 33 pg 25-34 Automated erythrocyte mean corpuscular hemoglobin concentration measurement ( mass/volume) 35 g/dL 32-36 Automated erythrocyte distribution width ratio 14.1 % 10.0-14.5 Automated blood platelet count (count/volume) 169 10*3/uL 130-400 Automated blood platelet mean volume measurement 9.0 [foz_us] 7.4-10.4 Automated blood neutrophils/100 leukocytes 64 % 42-75 Automated blood lymphocytes/100 leukocytes 28 % 12-44 Blood monocytes/100 leukocytes 7 % 0-12 Automated blood eosinophils/100 leukocytes 2 % 0-10 Automated blood basophils/100 leukocytes 0 % 0-10 Blood neutrophils automated count (number/volume) 3.4 10*3 1.8-7.8 Blood lymphocytes automated count (number/volume) 1.5 10*3 1.0-4.0 Blood monocytes automated count (number/volume) 0.4 10*3 0.0-1.0 Automated eosinophil count 0.1 10*3/uL 0.0-0.3 Automated blood basophil count (count/volume) 0.0 10*3/uL 0.0-0.1 Comprehensive metabolic panel - 10/06/17 14:40 Serum or plasma sodium measurement (moles/volume) 139 mmol/L 135-145 Serum or plasma potassium measurement (moles/volume) 4.4 mmol/L 3.6-5.0 Serum or plasma chloride measurement (moles/volume) 99 mmol/L 98-107 Carbon dioxide 30 mmol/L 21-32 Serum or plasma anion gap determination (moles/volume) 10 mmol/L 5-14 Serum or plasma urea nitrogen measurement (mass/volume) 36 mg/dL 7-18 Serum or plasma creatinine measurement (mass/volume) 4.07 mg/dL 0.60-1.30 Serum or plasma urea nitrogen/creatinine mass ratio 9 NRG Serum or plasma creatinine measurement with calculation of estimated glomerular filtration rate 11 NRG Serum or plasma glucose measurement (mass/volume) 216 mg/dL 70-105 Serum or plasma calcium measurement (mass/volume) 9.6 mg/dL 8.5-10.1 Serum or plasma total bilirubin measurement (mass/volume) 0.4 mg/dL 0.1-1.0 Serum or plasma alkaline phosphatase measurement (enzymatic activity/volume) 92 U/L 40-136 Serum or plasma aspartate aminotransferase measurement (enzymatic activity/ volume) 27 U/L 5-34 Serum or plasma alanine aminotransferase measurement (enzymatic activity/volume ) 47 U/L 0-55 Serum or plasma protein measurement (mass/volume) 7.4 g/dL 6.4-8.2 Serum or plasma albumin measurement (mass/volume) 3.8 g/dL 3.2-4.5 Magnesium - 10/06/17 14:40 Magnesium 2.2 mg/dL 1.8-2.4 Serum or plasma troponin i.cardiac measurement (mass/volume) - 10/06/17 14:40 Serum or plasma troponin i.cardiac measurement (mass/volume) < ng/ mL <0.30 Myoglobin, serum - 10/06/17 14:40 Myoglobin, serum 198.3 ng/mL 10.0-92.0 PT panel in platelet poor plasma by coagulation assay - 10/06/17 14:40 Prothrombin time (PT) in platelet poor plasma by coagulation assay 12.5 s 12.2-14.7 INR in platelet poor plasma or blood by coagulation assay 0.9 0.8-1.4 Activated partial thromboplastin time (aPTT) in platelet poor plasma bycoagulation assay - 10/06/17 14:40 Activated partial thromboplastin time (aPTT) in platelet poor plasma bycoagulation assay 30 s 24-35 Complete blood count (CBC) with automated white blood cell (WBC) differential - 01/26/18 08:20 Blood leukocytes automated count (number/volume) 5.8 10*3/uL 4.3-11.0 Blood erythrocytes automated count (number/volume) 4.01 10*6/uL 4.35-5.85 Venous blood hemoglobin measurement (mass/volume) 12.9 g/dL 11.5-16.0 Blood hematocrit (volume fraction) 39 % 35-52 Automated erythrocyte mean corpuscular volume 98 [foz_us] 80-99 Automated erythrocyte mean corpuscular hemoglobin (mass per erythrocyte) 32 pg 25-34 Automated erythrocyte mean corpuscular hemoglobin concentration measurement ( mass/volume) 33 g/dL 32-36 Automated erythrocyte distribution width ratio 14.6 % 10.0-14.5 Automated blood platelet count (count/volume) 172 10*3/uL 130-400 Automated blood platelet mean volume measurement 8.4 [foz_us] 7.4-10.4 Automated blood neutrophils/100 leukocytes 72 % 42-75 Automated blood lymphocytes/100 leukocytes 18 % 12-44 Blood monocytes/100 leukocytes 8 % 0-12 Automated blood eosinophils/100 leukocytes 2 % 0-10 Automated blood basophils/100 leukocytes 0 % 0-10 Blood neutrophils automated count (number/volume) 4.2 10*3 1.8-7.8 Blood lymphocytes automated count (number/volume) 1.0 10*3 1.0-4.0 Blood monocytes automated count (number/volume) 0.5 10*3 0.0-1.0 Automated eosinophil count 0.1 10*3/uL 0.0-0.3 Automated blood basophil count (count/volume) 0.0 10*3/uL 0.0-0.1 Comprehensive metabolic panel - 01/26/18 08:20 Serum or plasma sodium measurement (moles/volume) 138 mmol/L 135-145 Serum or plasma potassium measurement (moles/volume) 4.3 mmol/L 3.6-5.0 Serum or plasma chloride measurement (moles/volume) 94 mmol/L 98-107 Carbon dioxide 31 mmol/L 21-32 Serum or plasma anion gap determination (moles/volume) 13 mmol/L 5-14 Serum or plasma urea nitrogen measurement (mass/volume) 36 mg/dL 7-18 Serum or plasma creatinine measurement (mass/volume) 4.28 mg/dL 0.60-1.30 Serum or plasma urea nitrogen/creatinine mass ratio 8 NRG Serum or plasma creatinine measurement with calculation of estimated glomerular filtration rate 10 NRG Serum or plasma glucose measurement (mass/volume) 188 mg/dL 70-105 Serum or plasma calcium measurement (mass/volume) 9.9 mg/dL 8.5-10.1 Serum or plasma total bilirubin measurement (mass/volume) 0.5 mg/dL 0.1-1.0 Serum or plasma alkaline phosphatase measurement (enzymatic activity/volume) 71 U/L 40-136 Serum or plasma aspartate aminotransferase measurement (enzymatic activity/ volume) 23 U/L 5-34 Serum or plasma alanine aminotransferase measurement (enzymatic activity/volume ) 20 U/L 0-55 Serum or plasma protein measurement (mass/volume) 7.1 g/dL 6.4-8.2 Serum or plasma albumin measurement (mass/volume) 3.9 g/dL 3.2-4.5 Serum or plasma amylase measurement (enzymatic activity/volume) - 01/26/18 08: 20 Serum or plasma amylase measurement (enzymatic activity/volume) 56 U /L 25-125 Lipase - 01/26/18 08:20 Lipase 54 U/L 8-78 Methicillin resistant Staphylococcus aureus (MRSA) screening culture - 06:20 Methicillin resistant Staphylococcus aureus (MRSA) screening culture NEG NRG Capillary blood glucose measurement by glucometer (mass/volume) - 03/02/18 06: 25 Capillary blood glucose measurement by glucometer (mass/volume) 116 mg/dL 70-110 Whole blood basic metabolic panel - 03/02/18 06:35 Serum or plasma sodium measurement (moles/volume) 139 mmol/L 135-145 Serum or plasma potassium measurement (moles/volume) 4.2 mmol/L 3.6-5.0 Serum or plasma chloride measurement (moles/volume) 96 mmol/L 98-107 Carbon dioxide 32 mmol/L 21-32 Serum or plasma anion gap determination (moles/volume) 11 mmol/L 5-14 Serum or plasma urea nitrogen measurement (mass/volume) 33 mg/dL 7-18 Serum or plasma creatinine measurement (mass/volume) 4.46 mg/dL 0.60-1.30 Serum or plasma urea nitrogen/creatinine mass ratio 7 NRG Serum or plasma creatinine measurement with calculation of estimated glomerular filtration rate 10 NRG Serum or plasma glucose measurement (mass/volume) 108 mg/dL 70-105 Serum or plasma calcium measurement (mass/volume) 8.5 mg/dL 8.5-10.1 Encounters ACCT No. Visit Date/Time Discharge Status Pt. Type Provider Facility Loc./Unit Complaint [id number] 03/02/2018 05:50:00 03/02/2018 14:09:00 DIS Outpatient MILEY VILLA, RENEE Eduardo [facility] SDC GALLBLADDER DYSKINESIA [id number] 02/24/2018 05:30:00 02/24/2018 15:01:00 DIS Outpatient MILEY VILLA, RENEE Eduardo [facility] PREOP GALLBLADDER DYSKINESIA [id number] 02/11/2018 10:29:00 02/11/2018 23:59:59 CLS Outpatient GELLENGERTRUDE URIBE DO [facility] CARD PAIN IN RUQ [id number] 01/27/2018 14:49:00 01/27/2018 23:59:59 CLS Outpatient GERTRUDE NEWSOME DO [facility] RAD RIGHT UPPER QUADRANT PAIN [id number] 01/26/2018 08:04:00 01/26/2018 23:59:59 CLS Outpatient GERTRUDE NEWSOME DO [facility] RAD PAIN IN RUQ [id number] 10/06/2017 14:13:00 10/06/2017 17:15:00 DIS Emergency CORBY ELIZABETH APRN [facility] ER INCREASED HEART RATE PER DR GUERRERO [id number] 08/07/2017 13:03:00 08/07/2017 16:00:00 DIS Emergency JENNIFER LINARES [facility] ER RECTAL BLEEDING [id number] 05/28/2017 13:03:00 05/28/2017 23:59:59 CLS Outpatient GERTRUDE NEWSOME DO [facility] RAD PAIN IN ABD , R UPPER CYST [id number] 05/24/2017 09:32:00 05/24/2017 23:59:59 CLS Outpatient GERTRUDE NEWSOME DO [facility] CARD RUQ PAIN [id number] 05/10/2017 07:39:00 05/10/2017 23:59:59 CLS Outpatient GERTRUDE NEWSOME DO [facility] RAD PAIN IN RUQ [id number] 09/04/2016 08:43:00 09/04/2016 23:59:59 CLS Outpatient ERASMO CURTIS [facility] LAB BLOOD IN URINE,OBESE [id number] 08/24/2016 10:38:00 08/26/2016 12:30:00 DIS Inpatient GERTRUDE NEWSOME DO [facility] 4TH LEFT PNA CHRONIC RENAL FAILURE N/V [id number] 08/21/2016 08:53:00 08/21/2016 23:59:59 CLS Outpatient ERASMO CURTIS [employer] [facility] LAB BLOOD IN URINE,DIABETIC NEUTROPATHY [id number] 12/18/2015 09:01:00 12/18/2015 23:59:59 CLS Outpatient ERASMO CURTIS [employer] [facility] LAB BLOOD IN URINE,ACIDOSIS, PROTEINURIA [id number] 10/07/2015 08:41:00 10/07/2015 23:59:59 CLS Outpatient ERASMO CURTIS [employer] [facility] LAB HLP,ACIDOISIS,VIT D DEF, ANEMIA,HTN,DM,CKD [id number] 05/28/2015 08:37:00 05/28/2015 23:59:59 CLS Outpatient MERCEDEZ DO GERTRUDE Shai [facility] LAB RENAL INSUFF,DM [id number] 05/22/2015 00:11:00 05/22/2015 23:59:59 CLS Preadmit ERASMO CURTIS [employer] [facility] LAB HYPERLIPADEMIA,DIABETIC, HTN,CKD, [id number] 02/20/2015 16:42:00 05/21/2015 00:01:00 DIS Outpatient ERASMO CURTIS [employer] [facility] LAB HYPERLIPADEMIA,DIABETIC, HTN,CKD, [id number] 05/23/2014 14:41:00 05/23/2014 23:59:59 CLS Outpatient ERASMO CURTIS [employer] [facility] RAD CKD STAGE 4 [id number] 01/12/2014 22:13:00 01/12/2014 23:44:00 DIS Emergency JEFFREY VILLA, THOMAS Angel [facility] ER RECTAL BLEEDING [id number] 05/22/2013 00:00:00 Document Registration [id number] 02/20/2013 16:46:00 Document Registration [id number] 03/23/2011 08:10:00 Document Registration [id number] 02/28/2011 11:16:00 Document Registration
--- NOTE | 2018-08-10 17:27 | ED GI ---
General Stated Complaint: SHAKEY, DIARRHEA Source of Information: Patient, Spouse Exam Limitations: No Limitations (LEONARDO CHENG) History of Present Illness Date Seen by Provider: Aug 10, 2018 Time Seen by Provider: 17:18 Initial Comments For the past 2 days the patient's not felt well with nausea vomiting diarrhea. No abdominal pain. She has had some pain in her left back of her chest for the past month and had her doctor, Dr. Newsome look at it. She does not have any rash itching or redness there. She is not having any shortness of breath chest pain fevers or chills. She says she is a dialysis patient and received dialysis on Wednesday, , Wednesday. She has been going appropriately. She says she is taking her medications appropriately. She does not have anything for nausea and has not been checked out for this particular illness. She feels very dry and dehydrated and unsteady on her feet. (LEONARDO CHENG) Allergies and Home Medications Allergies Coded Allergies: diphenhydramine HCl (Verified Allergy, Unknown, 08/24/16) Home Medications Apixaban 5 Mg Tablet, 5 MG PO BID, (Reported) Carvedilol 12.5 Mg Tablet, 12.5 MG PO BID, (Reported) Gabapentin 300 Mg Capsule, 300 MG PO HS, (Reported) Glipizide 5 Mg Tablet, 5 MG PO BID, (Reported) Hydrochlorothiazide 12.5 Mg Tablet, 12.5 MG PO DAILY, (Reported) Hydrocodone Bit/Acetaminophen 1 Tab Tab, 1-2 TAB PO 4-6HR PRN for PAIN Prescribed by: RENEE TRENT on 03/02/18922 Insulin Degludec 100 Unit/1 Ml Insuln.pen, 32 UNIT SQ HS, (Reported) Multivitamin 1 Each Tablet, 1 TAB PO DAILY, (Reported) [place] 3 Polyunsat Fatty Acids 1,000 Mg Cap, 2,000 MG PO BID, (Reported) TAKES 2 (1000MG) CAPSULES Ondansetron 4 Mg Tab.rapdis, 4 MG SL Q4H PRN for NAUSEA/VOMITING-1ST LINE Prescribed by: TRISHA ROWE on 08/10/18 194 Pravastatin Sodium 20 Mg Tablet, 20 MG PO HS, (Reported) Patient Home Medication List Home Medication List Reviewed: Yes (TRISHA ROWE) Review of Systems Review of Systems Constitutional: see HPI; No chills; dizziness; No fever Gastrointestinal: See HPI, Diarrhea, Nausea, Vomiting Skin: see HPI, dryness (TRISHA ROWE) All Other Systems Reviewed Negative Unless Noted: Yes (TRISHA ROWE) Past Wlolkkk-Stspth-Szfsgo Hx Past Med/Social Hx: Reviewed Nursing Past Med/Soc Hx (TRISHA ROWE) Patient Social History 2nd Hand Smoke Exposure: No Recent Foreign Travel: No Contact w/Someone Who Travel: No Recent Hopitalizations: No (LEONARDO CHENG) Immunizations Up To Date Tetanus Booster (TDap): Unknown Date of Pneumonia Vaccine: Jan 14, 2012 Date of Influenza Vaccine: Sep 26, 2017 (LEONARDO CHENG) Seasonal Allergies Seasonal Allergies: No (LEONARDO CHENG) Past Medical History Surgeries: Yes (polyp removal ) Respiratory: Yes Pneumonia Currently Using CPAP: No Currently Using BIPAP: No Cardiac: Yes Atrial Fibrillation, Hypertension Neurological: No Reproductive Disorders: No Renal Failure Gastrointestinal: Yes Gastroesophageal Reflux, Gall Bladder Disease Musculoskeletal: Yes Arthritis Endocrine: Yes Diabetes, Insulin dep Cancer: No Psychosocial: Yes Sleep Difficulties, Anxiety, Depression Integumentary: No Blood Disorders: No Adverse Reaction/Blood Tranf: Yes (LEONARDO CHENG) Family Medical History Reviewed Nursing Family Hx (TRISHA ROWE) Cardiovascular disease G8 SISTER Diabetes mellitus 19 FATHER 19 MOTHER Neoplasm 19 FATHER 19 MOTHER Physical Exam Vital Signs Vital Signs - First Documented 08/10/18 17:15 Temp 98.3 Pulse 83 Resp 18 B/P (MAP) 231/104 (146) Pulse Ox 96 (TRISHA ROWE) Vital Signs Capillary Refill : (LEONARDO CHENG) Height/Weight/BMI Height: 5'0.00" Weight: 163lbs. 0.0oz. 73.634928wk; 31.8 BMI Method:Stated (LEONARDO CHENG) General Appearance: WD/WN, no apparent distress Respiratory: chest non-tender, lungs clear, normal breath sounds, no respiratory distress, no accessory muscle use Cardiovascular: normal peripheral pulses, regular rate, rhythm, no edema, no gallop, no JVD, no murmur Gastrointestinal: normal bowel sounds, non tender, soft, no organomegaly, no pulsatile mass Neurologic/Psychiatric: alert, normal mood/affect, oriented x 3 Skin: normal color, warm/dry (TRISHA ROWE) Focused Exam Lactate Level 08/10/18 17:31: Lactic Acid Level 1.03 (TRISHA ROWE) Lactic Acid Level Laboratory Tests Test 08/10/18 17:31 Lactic Acid Level 1.03 MMOL/L (0.50-2.00) (TRISHA ROWE) Progress/Results/Core Measures Results/Orders Lab Results Laboratory Tests Test 08/10/18 17:00 08/10/18 17:31 08/10/18 18:00 08/10/18 18:16 Range/Units Lab Scanned Report Referred Lab Report [id number] Prothrombin Time 14.9 H 12.2-14.7 SEC INR Comment 1.2 0.8-1.4 Activated Partial Thromboplast Time 28 24-35 SEC Sodium Level 137 135-145 MMOL/L Potassium Level 4.0 3.6-5.0 MMOL/L Chloride Level 97 L 98-107 MMOL/L Carbon Dioxide Level 25 21-32 MMOL/L Anion Gap 15 H 5-14 MMOL/L Blood Urea Nitrogen 24 H 7-18 MG/DL Creatinine 3.83 H 0.60-1.30 MG/DL Estimat Glomerular Filtration Rate 11 BUN/Creatinine Ratio 6 Glucose Level 318 H 70-105 MG/DL Lactic Acid Level 1.03 0.50-2.00 MMOL/L Calcium Level 10.6 H 8.5-10.1 MG/DL Corrected Calcium 10.7 H 8.5-10.1 MG/DL Total Bilirubin 0.5 0.1-1.0 MG/DL Aspartate Amino Transf (AST/SGOT) 30 5-34 U/L Alanine Aminotransferase (ALT/SGPT) 27 0-55 U/L Alkaline Phosphatase 113 40-136 U/L Total Protein 7.3 6.4-8.2 GM/DL Albumin 3.9 3.2-4.5 GM/DL White Blood Count 4.2 L 4.3-11.0 10^3/uL Red Blood Count 3.70 L 4.35-5.85 10^6/uL Hemoglobin 11.8 11.5-16.0 G/DL Hematocrit 35 35-52 % Mean Corpuscular Volume 94 80-99 FL Mean Corpuscular Hemoglobin 32 25-34 PG Mean Corpuscular Hemoglobin Concent 34 32-36 G/DL Red Cell Distribution Width 15.0 H 10.0-14.5 % Platelet Count 123 L 130-400 10^3/uL Mean Platelet Volume 8.8 7.4-10.4 FL Neutrophils (%) (Auto) 62 42-75 % Lymphocytes (%) (Auto) 22 12-44 % Monocytes (%) (Auto) 9 0-12 % Eosinophils (%) (Auto) 6 0-10 % Basophils (%) (Auto) 1 0-10 % Neutrophils # (Auto) 2.6 1.8-7.8 X 10^3 Lymphocytes # (Auto) 0.9 L 1.0-4.0 X 10^3 Monocytes # (Auto) 0.4 0.0-1.0 X 10^3 Eosinophils # (Auto) 0.3 0.0-0.3 10^3/uL Basophils # (Auto) 0.0 0.0-0.1 10^3/uL Urine Color YELLOW Urine Clarity CLEAR Urine pH 9 5-9 Urine Specific [place] 1.015 L 1.016-1.022 Urine Protein 3+ H NEGATIVE Urine Glucose (UA) 4+ H NEGATIVE Urine Ketones NEGATIVE NEGATIVE Urine Nitrite NEGATIVE NEGATIVE Urine Bilirubin NEGATIVE NEGATIVE Urine Urobilinogen NORMAL NORMAL MG/DL Urine Leukocyte Esterase NEGATIVE NEGATIVE Urine RBC (Auto) 3+ H NEGATIVE Urine RBC 10-25 H /HPF Urine WBC NONE /HPF Urine Squamous Epithelial Cells 10-25 H /HPF Urine Crystals NONE /LPF Urine Bacteria 1+ /HPF Urine Casts PRESENT /LPF Urine Hyaline Casts RARE /LPF Urine Mucus NEGATIVE /LPF Urine Culture Indicated NO (TRISHA ROWE) Micro Results Microbiology 08/10/18 Blood Culture - Preliminary, Resulted No growth 08/10/18 Blood Culture - Preliminary, Resulted No growth 08/10/18 Urine Culture - Final, Complete NO GROWTH (TRISHA ROWE) Medications Given in ED (TRISHA ROWE) Vital Signs/I&O 08/10/18 08/10/18 17:15 19:53 Temp 98.3 98.3 Pulse 83 83 Resp 18 18 B/P (MAP) 231/104 (146) 190/89 (146) Pulse Ox 96 96 (TRISHA ROWE) Progress Progress Note : Time: 18:22 Progress Note Versus other. She's not got a very tender belly at this time. Her blood pressure is elevated so we'll hold off any fluids. She had her dialysis yesterday. She does not appear to be dry clinically. We'll start with some Zofran and labs and a chest x-ray. (LEONARDO CHENG) Progress Note : Progress Note [id number] have assumed care from Dr. Cheng at this time. I have seen and reevaluated the patient at this time. I have informed her we're currently waiting on her urine results, her nausea has resolved at this time. [id number]: I have informed the patient of her laboratory findings. She is feeling much better at this time. She agrees with plan of care. Close follow up with her primary care, and continuing with her dialysis tomorrow. (TRISHA ROWE) Diagnostic Imaging Diagonstic Imaging: Xray Plain Films/CT/US/NM/MRI: chest (1v) Comments VIA [facility]. [place], [place] NAME: FERNANDA MOTA Jasmin [facility] REC#: [id number] PT STATUS: REG ER : 1940 PHYSICIAN: LEONARDO CHENG MD ADMIT DATE: 08/10/18/ER Draft Date of Exam:08/10/18 CHEST 1 VIEW, AP/PA ONLY INDICATION: Left flank pain. FINDINGS: The heart is enlarged. The lungs are clear. There is no effusion, pneumothorax, or vascular congestion. IMPRESSION: Enlargement of the cardiac silhouette; otherwise, negative. Dictated on workstation # [id number] Dict: 08/10/181751 Trans: 08/10/181757 [id number] Interpreted by: DRAKE PERRIN Electronically signed by: Reviewed: Reviewed by Me (LEONARDO CHENG) Transfer of Care Time: 18:22 Care transferred to: trisha Rowe (LEONARDO CHENG) Departure Impression Primary Impression: Nausea vomiting and diarrhea Disposition: 01 HOME, SELF-CARE Condition: Stable/Unchanged Departure-Patient Inst. Decision time for Depature: 19:45 (TRISHA ROWE) Referrals: GERTRUDE NEWSOME DO (PCP/Family) Primary Care Physician Patient Instructions: Viral Gastroenteritis, Adult (DC) Add. Discharge Instructions: Take medication as directed. Ensure that your drinking plenty of clear liquids. Be sure and make your appointment to dialysis tomorrow. Return back to the emergency room with any worsening symptoms or concerns as needed. Follow-up with Dr. Newsome within 1 week for recheck. Scripts Ondansetron (Zofran Odt) 4 Mg Tab.rapdis 4 MG SL Q4H PRN for NAUSEA/VOMITING-1ST LINE, #14 TAB Prov: TRISHA ROWE 08/10/18 LEONARDO CHENG Aug 10, 2018 17:27 TRISHA ROWE Aug 10, 2018 18:31
[2018-08-10] MEDS ORDERED: ONDANSETRON 4 MG/2 ML (SDV) Z0FRAN IVP ONE (17:30)
[2018-08-10] MEDS ORDERED: CEFEPIME INJECTION 1,000 MG in NS (IVPB) 50 ML IV ONE (17:30)
[2018-08-10 17:57] LABS: INR 1.2 (0.8-1.4); PROTHROMBIN TIME PATIENT 14.9 SEC (12.2-14.7)
--- NOTE | 2018-08-10 17:59 | Diagnostic Imaging Report ---
INDICATION: Left flank pain. FINDINGS: The heart is enlarged. The lungs are clear. There is no effusion, pneumothorax, or vascular congestion. IMPRESSION: Enlargement of the cardiac silhouette; otherwise, negative. Dictated by: Dictated on workstation # [id number]
[2018-08-10 18:02] LABS: ALBUMIN 3.9 GM/DL (3.2-4.5); BILIRUBIN,TOTAL 0.5 MG/DL (0.1-1.0); CALCIUM 10.6 MG/DL (8.5-10.1); CREATININE SERUM 3.83 MG/DL (0.60-1.30); TOTAL PROTEIN 7.3 GM/DL (6.4-8.2)
[2018-08-10 18:07] LABS: BASOPHILS % (AUTO) 1 % (0-10); EOSINOPHILS # (AUTO) 0.3 10^3/uL (0.0-0.3); EOSINOPHILS % (AUTO) 6 % (0-10); HEMATOCRIT 35 % (35-52); HEMOGLOBIN 11.8 G/DL (11.5-16.0); LYMPHOCYTES # (AUTO) 0.9 X 10^3 (1.0-4.0); LYMPHOCYTES % (AUTO) 22 % (12-44); MEAN CORPUSCULAR HEMOGLOBIN 32 PG (25-34); MEAN CORPUSCULAR HGB CONC 34 G/DL (32-36); MEAN CORPUSCULAR VOLUME 94 FL (80-99); MEAN PLATELET VOLUME 8.8 FL (7.4-10.4); MONOCYTES # (AUTO) 0.4 X 10^3 (0.0-1.0); MONOCYTES % (AUTO) 9 % (0-12); NEUTROPHILS # (AUTO) 2.6 X 10^3 (1.8-7.8); NEUTROPHILS % (AUTO) 62 % (42-75); PLATELET COUNT 123 10^3/uL (130-400); WHITE BLOOD COUNT 4.2 10^3/uL (4.3-11.0)
[2018-08-10 18:25] LABS: BILIRUBIN,URINE NEGATIVE (NEGATIVE); CLARITY,URINE CLEAR; COLOR,URINE YELLOW; GLUCOSE, URINE (UA) 4+ (NEGATIVE); KETONES,URINE NEGATIVE (NEGATIVE); LEUKOCYTE ESTERASE ,URINE NEGATIVE (NEGATIVE); NITRITE,URINE NEGATIVE (NEGATIVE); PH,URINE 9 (5-9); PROTEIN,URINE 3+ (NEGATIVE); UROBILINOGEN,URINE NORMAL (NORMAL)
[2018-08-10 18:32] LABS: BACTERIA,URINE 1+ /HPF; HYALINE CASTS, URINE RARE /LPF
[2018-08-10] MEDS ORDERED: ONDA4TAB8 SL (19:46)
[2018-08-10 19:53] VITALS: BP 190/89
== END 2018-08-10 19:53 | disposition home or self-care (01) ==
LOC: EDUNIT# 16:59 → ER 17:00
DX: R11.2 Nausea with vomiting, unspecified (principal); R19.7 Diarrhea, unspecified; I48.91 Unspecified atrial fibrillation; I10 Essential (primary) hypertension; K21.9 Gastro-esophageal reflux disease without esophagitis; E11.9 Type 2 diabetes mellitus without complications; F41.9 Anxiety disorder, unspecified; F32.9 Major depressive disorder, single episode, unspecified; Z82.49 Family history of ischemic heart disease and other diseases of the circulatory system; Z87.448 Personal history of other diseases of urinary system; Z88.8 Allergy status to other drugs, medicaments and biological substances; Z79.01 Long term (current) use of anticoagulants; Z79.4 Long term (current) use of insulin; Z86.010 Personal history of colon polyps; Z87.01 Personal history of pneumonia (recurrent)
CPT/HCPCS: 36415; 71045; 80053; 81000; 83605; 85025; 85610; 85730; 87040; 87088

== ENCOUNTER → 2018-09-27 | Outpatient (CLI) | payer MEDICARE, OTHER ==
[~2018-09-27] MED LIST changes: +ONDA4TAB8 SL
--- NOTE | 2018-09-27 19:38 | Diagnostic Imaging Report ---
Ultrasound of the right breast limited. INDICATION: Pain in right breast. FINDINGS: By history, the patient has pain in the lateral aspect of the right breast. The diagnostic mammogram performed earlier today failed to show any sign of malignancy or for an acute abnormality. On this study, there is no discrete solid or cystic mass identified. There is no sign of an abscess either. IMPRESSION: There is no evidence for malignancy or for an acute abnormality. Clinical followup is recommended. ACR BI-RADS Category 1: Negative. Dictated by: Dictated on workstation # [id number]
--- NOTE | 2018-09-28 21:45 | Diagnostic Imaging Report ---
INDICATION: Right breast pain. EXAMINATION: Digital mammogram bilateral diagnostic with 3-D tomosynthesis. The current study was also evaluated with a Computer Aided Detection (CAD) system. This is the patient's baseline study. At this time, she does complain of pain in the right breast. FINDINGS: The fibroglandular tissue in both breasts is heterogeneously dense. This does limit the sensitivity of this exam. There is no primary or secondary sign of malignancy involving either breast. There is no abnormality of the right breast to account for the patient's pain. Even so, ultrasound will be recommended for further study. IMPRESSION: There is no evidence for malignancy or for an acute abnormality. Ultrasound of the right breast will be recommended for further evaluation, however. ACR BI-RADS Category 0: Incomplete. (Needs additional imaging evaluation). Result letter will be mailed to the patient. Note: At least 10% of breast cancer is not imaged by mammography. Dictated by: Dictated on workstation # [id number]
== END ==
LOC: RAD 09:03
PROVIDERS: ATTEND Family Medicine
DX: N64.4 Mastodynia (principal)
CPT/HCPCS: 77066

== ENCOUNTER → 2019-01-18 | Outpatient (CLI) | payer MEDICARE ==
[~2019-01-18] MED LIST changes: -AMLO10TA6 PO; +AMLO10TA7 PO
--- NOTE | 2019-01-18 13:43 | Diagnostic Imaging Report ---
PROCEDURE: CT abdomen and pelvis without contrast. TECHNIQUE: Multiple contiguous axial images were obtained through the abdomen and pelvis without the use of intravenous contrast. INDICATION: Right-sided abdominal pain. Correlation is made with prior CT from 01/27/2018. FINDINGS: The lung bases are clear. No discrete liver mass is identified. The gallbladder appears to be surgically absent. No biliary ductal dilatation is seen. The pancreas and spleen are unremarkable. No adrenal mass is identified. Kidneys are small. No definite calculus or hydronephrosis is identified. Aorta is calcified but nonaneurysmal. Bowel loops are nonobstructed. The appendix is visualized in the right lower quadrant and appears unremarkable. There is diverticulosis throughout the colon. No definite evidence of acute diverticulitis is identified. There is no ascites. Uterus is unremarkable. The bladder is decompressed. IMPRESSION: Colonic diverticulosis without evidence of acute diverticulitis. No acute feature is detected. Dictated by: Dictated on workstation # [id number]
== END ==
LOC: RAD 12:55
PROVIDERS: ATTEND Family Medicine
DX: K57.30 Diverticulosis of large intestine without perforation or abscess without bleeding (principal); R19.09 Other intra-abdominal and pelvic swelling, mass and lump
CPT/HCPCS: 74176

== ENCOUNTER → 2019-02-20 | Outpatient (CLI) | payer MEDICARE, OTHER ==
[2019-02-20 14:52] LABS: HEMOGLOBIN 11.1 G/DL (11.5-16.0); MEAN PLATELET VOLUME 8.6 FL (7.4-10.4); RED CELL DISTRIBUTION WIDTH 16.5 % (10.0-14.5); WHITE BLOOD COUNT 5.8 10^3/uL (4.3-11.0)
== END ==
LOC: LAB 14:29
PROVIDERS: ATTEND Family Medicine
DX: K92.1 Melena (principal); K59.00 Constipation, unspecified
CPT/HCPCS: 36415; 85027

== ENCOUNTER → 2019-03-24 | Outpatient (CLI) | payer MEDICARE, OTHER ==
--- NOTE | 2019-03-24 12:07 | Diagnostic Imaging Report ---
PROCEDURE: US Hepatic (Liver). TECHNIQUE: Multiple real-time grayscale images were obtained over the right upper quadrant in various projections. INDICATION: Right upper quadrant pain. FINDINGS: The liver is normal in size at 15.3 cm. No discrete liver mass is identified. Portal vein is patent and shows normal direction of flow. Gallbladder is surgically absent. No biliary ductal dilatation is seen. The visualized pancreas is unremarkable. Right kidney is somewhat smaller at 8.4 cm in length. There appears to be some cortical thinning and some increased cortical echogenicity. No calculi or hydronephrosis is identified. There is no ascites. IMPRESSION: 1. Status post cholecystectomy. 2. Slightly small right kidney with increased echogenicity, suggestive of medical renal disease. Correlation with laboratory values is recommended. No calculi or hydronephrosis is detected. Dictated by: Dictated on workstation # [id number]
== END ==
LOC: RAD 07:47
PROVIDERS: ATTEND Family Medicine
DX: R10.11 Right upper quadrant pain (principal); N28.9 Disorder of kidney and ureter, unspecified; Z90.49 Acquired absence of other specified parts of digestive tract
CPT/HCPCS: 76705

== ENCOUNTER 2019-04-25 04:44 | Emergency (ER) | payer MEDICARE, OTHER ==
[~2019-04-25] VITALS: Ht 152.4 cm; Wt 73.9 kg
--- NOTE | 2019-04-25 04:50 | NUR ---
patient to room with shortness of breath
--- NOTE | 2019-04-25 05:11 | ED Respiratory ---
General Chief Complaint: Respiratory Problems Stated Complaint: SOB Source: patient History of Present Illness Date Seen by Provider: Apr 25, 2019 Time Seen by Provider: 04:50 Initial Comments PT ARRIVES VIA POV FROM HOME C/O SEVERE SHORTNESS OF BREATH SINCE YESTERDAY MORNING PT IS ON DIALYSIS--IS DUE THIS MORNING ( WEDNESDAY) --GETS DIALYSIS WEDNESDAY- DAY-WEDNESDAY DENIES ANY MISSED DIALYSIS SESSIONS OR DECREASE IN AMOUNT OF FLUID REMOVED NO CHEST PAIN OR PAIN WITH BREATHING HAD SOME SWELLING IN FEET YESTERDAY BUT NOT TODAY PT HAS HAD A COUGH FOR THE LAST COUPLE OF WEEKS NO FEVER DOES NOT WEAR HOME O2--O2 SATS 78% ON ROOM AIR ON ARRIVAL PT STILL MAKES URINE--STATES SHE HAS BEEN UP ALL NIGHT URINATING PT HAS NOT TAKEN ANY OF HER AM MEDICATIONS. HAS HISTORY OF SAME MULTIPLE TIMES PCP: DR. NEWSOME OUTPATIENT INTERVIEWING CLERK: DR Carrasco" Allergies and Home Medications Allergies Coded Allergies: diphenhydramine HCl (Verified Allergy, Unknown, 08/24/16) Home Medications Apixaban 5 Mg Tablet, 5 MG PO BID, (Reported) Carvedilol 12.5 Mg Tablet, 12.5 MG PO BID, (Reported) Gabapentin 300 Mg Capsule, 300 MG PO HS, (Reported) Glipizide 5 Mg Tablet, 5 MG PO BID, (Reported) Hydrochlorothiazide 12.5 Mg Tablet, 12.5 MG PO DAILY, (Reported) Hydrocodone Bit/Acetaminophen 1 Tab Tab, 1-2 TAB PO 4-6HR PRN for PAIN Prescribed by: RENEE TRENT on 03/02/18 09 Insulin Degludec 100 Unit/1 Ml Insuln.pen, 32 UNIT SQ HS, (Reported) Multivitamin 1 Each Tablet, 1 TAB PO DAILY, (Reported) [place] 3 Polyunsat Fatty Acids 1,000 Mg Cap, 2,000 MG PO BID, (Reported) TAKES 2 (1000MG) CAPSULES Ondansetron 4 Mg Tab.rapdis, 4 MG SL Q4H PRN for NAUSEA/VOMITING-1ST LINE Prescribed by: TRISHA CRENSHAW on 08/10/181945 Pravastatin Sodium 20 Mg Tablet, 20 MG PO HS, (Reported) Patient Home Medication List Home Medication List Reviewed: Yes Review of Systems Review of Systems Constitutional: No diaphoresis, No fever Respiratory: see HPI, cough, dyspnea on exertion, orthopnea, short of breath Cardiovascular: No chest pain; edema; No palpitations, No syncope, No vascular heart diseas Gastrointestinal: no symptoms reported Genitourinary: see HPI, frequency Musculoskeletal: no symptoms reported Skin: no symptoms reported Psychiatric/Neurological: Anxiety Hematologic/Lymphatic: No Symptoms Reported Immunological/Allergic: no symptoms reported Past Bvwkbgx-Xnrtmz-Qvwpxk Hx Patient Social History 2nd Hand Smoke Exposure: No Recent Foreign Travel: No Contact w/Someone Who Travel: No Recent Hopitalizations: No Immunizations Up To Date Tetanus Booster (TDap): Unknown Date of Pneumonia Vaccine: Jan 14, 2012 Date of Influenza Vaccine: Sep 26, 2017 Seasonal Allergies Seasonal Allergies: No Past Medical History Surgeries: Yes (COLONOSCOPIES/POLYPECTOMIES; LEFT ARM DIALYSIS GRAFT/FISTULA) Arteriovenous Shunt, Dialysis, Gallbladder, Vascular Surgery Respiratory: Yes (CHF/FLUID OVERLOAD) Pneumonia Currently Using CPAP: No Currently Using BIPAP: No Cardiac: Yes (CHF/FLUID OVERLOAD) Atrial Fibrillation, Chronic Edema/Swelling, Hypertension Neurological: No Reproductive Disorders: No Genitourinary: Yes Renal Failure, Dialysis Gastrointestinal: Yes (LOWER GI BLEEDING FROM DIVERTICULITIS; MULTIPLE COLON POLYPECTOMIES) Gastroesophageal Reflux, Gastrointestinal Bleed, Diverticulosis, Polyps, Gall Bladder Disease Musculoskeletal: Yes Arthritis Endocrine: Yes Diabetes, Insulin dep HEENT: No Cancer: No Psychosocial: Yes Sleep Difficulties, Anxiety, Depression Integumentary: No Blood Disorders: Yes (ANEMIA) Adverse Reaction/Blood Tranf: No Family Medical History Cardiovascular disease G8 SISTER Diabetes mellitus 19 FATHER 19 MOTHER Neoplasm 19 FATHER 19 MOTHER Physical Exam Vital Signs - First Documented 04/25/19 04/25/19 04:50 04:53 Temp 97.7 Pulse 78 Resp 26 B/P (MAP) 230/129 (162) Pulse Ox 93 O2 Delivery Nasal Cannula O2 Flow Rate 3.00 FiO2 93 Capillary Refill : Height: 5'0" Weight: 163lbs. 0.0oz. 73.170493ne; 31.8 BMI Method:Stated General Appearance: moderate distress, other (ANXIOUS, DYSPNEIC--TALKS IN 1-3 WORD SENTENCES/PHRASES) HEENT: other (SELMA-ORBITAL EDEMA) Respiratory: respiratory distress, decreased breath sounds (IN BASES), accessory muscle use, other (UPPER AIRWAY "WHEEZING" ON ARRIVAL--) Cardiovascular: regular rate, rhythm, no murmur Gastrointestinal: soft Extremities: no pedal edema, normal capillary refill Neurologic/Psychiatric: desktop analyst II-XII nml as tested, no motor/sensory deficits, alert, oriented x 3, other (ANXIOUS) Skin: normal color, warm/dry Progress/Results/Core Measures Suspected Sepsis SIRS Temperature: Pulse: Respiratory Rate: Laboratory Tests 04/25/19 05:07: White Blood Count 7.7 Blood Pressure / Mean: Laboratory Tests 04/25/19 05:07: Creatinine 6.30H, INR Comment 1.0, Platelet Count 189, Total Bilirubin 0.5 Results/Orders Lab Results Laboratory Tests Test 04/25/19 05:07 04/25/19 05:08 04/25/19 05:19 Range/Units White Blood Count 7.7 4.3-11.0 10^3/uL Red Blood Count 3.78 L 4.35-5.85 10^6/uL Hemoglobin 11.9 11.5-16.0 G/DL Hematocrit 36 35-52 % Mean Corpuscular Volume 96 80-99 FL Mean Corpuscular Hemoglobin 31 25-34 PG Mean Corpuscular Hemoglobin Concent 33 32-36 G/DL Red Cell Distribution Width 16.2 H 10.0-14.5 % Platelet Count 189 130-400 10^3/uL Mean Platelet Volume 8.7 7.4-10.4 FL Neutrophils (%) (Auto) 81 H 42-75 % Lymphocytes (%) (Auto) 11 L 12-44 % Monocytes (%) (Auto) 6 0-12 % Eosinophils (%) (Auto) 2 0-10 % Basophils (%) (Auto) 0 0-10 % Neutrophils # (Auto) 6.2 1.8-7.8 X 10^3 Lymphocytes # (Auto) 0.9 L 1.0-4.0 X 10^3 Monocytes # (Auto) 0.4 0.0-1.0 X 10^3 Eosinophils # (Auto) 0.2 0.0-0.3 10^3/uL Basophils # (Auto) 0.0 0.0-0.1 10^3/uL Prothrombin Time 14.0 12.2-14.7 SEC INR Comment 1.0 0.8-1.4 Activated Partial Thromboplast Time 21 L 24-35 SEC Sodium Level 138 135-145 MMOL/L Potassium Level 5.1 H 3.6-5.0 MMOL/L Chloride Level 99 98-107 MMOL/L Carbon Dioxide Level 23 21-32 MMOL/L Anion Gap 16 H 5-14 MMOL/L Blood Urea Nitrogen 52 H 7-18 MG/DL Creatinine 6.30 H 0.60-1.30 MG/DL Estimat Glomerular Filtration Rate 6 BUN/Creatinine Ratio 8 Glucose Level 206 H 70-105 MG/DL Calcium Level 9.4 8.5-10.1 MG/DL Corrected Calcium 9.5 8.5-10.1 MG/DL Magnesium Level 2.1 1.8-2.4 MG/DL Total Bilirubin 0.5 0.1-1.0 MG/DL Aspartate Amino Transf (AST/SGOT) 16 5-34 U/L Alanine Aminotransferase (ALT/SGPT) 21 0-55 U/L Alkaline Phosphatase 125 40-136 U/L Total Creatine Kinase 140 29-168 U/L Creatine Kinase MB 4.8 <6.6 NG/ML Troponin I 0.106 H <0.028 NG/ML B-Type Natriuretic Peptide 1704.0 H <100.0 PG/ML Total Protein 7.2 6.4-8.2 GM/DL Albumin 3.9 3.2-4.5 GM/DL Blood Gas Puncture Site RIGHT RADIAL Blood Gas Patient Temperature 97.7 Arterial Blood pH 7.39 7.37-7.43 Arterial Blood Partial Pressure CO2 41 35-45 MMHG Arterial Blood Partial Pressure O2 121 H 79-93 MMHG Arterial Blood HCO3 24 23-27 MMOL/L Arterial Blood Total CO2 25.3 21.0-31.0 MMOL/L Arterial Blood Oxygen Saturation 99 94-100 % Arterial Blood Base Excess -0.4 -2.5-2.5 MMOL/L Tono Test YES-POS Blood Gas Ventilator Setting NO Blood Gas Inspired Oxygen 40% Glucometer 198 H 70-110 MG/DL My Orders Orders - ERASMO MATT DO Ed Iv/Invasive Line Start (04/25/19 04:50) Ekg Tracing (04/25/19 04:50) O2 (04/25/19 04:50) Monitor-Rhythm Ecg Trace Only (04/25/19 04:50) Chest 1 View, Ap/Pa Only (04/25/19 04:50) BNP (04/25/19 04:50) Cbc With Automated Diff (04/25/19 04:50) Comprehensive Metabolic Panel (04/25/19 04:50) Creatine Kinase (04/25/19 04:50) Creatine Kinase Mb (04/25/19 04:50) Magnesium (04/25/19 04:50) Protime With Inr (04/25/19 04:50) Partial Thromboplastin Time (04/25/19 04:50) Troponin I (04/25/19 04:50) Rt Request For Service (04/25/19 04:55) Arterial Blood Gas (04/25/19 04:55) Accucheck Stat ONCE (04/25/19 05:17) Hydralazine Injection (Apresoline Inject (04/25/19 05:30) Arterial Blood Draw (04/25/19 05:08) Medications Given in ED Current Medications Medications Dose Ordered Sig/Dee Route Start Time Stop Time Status Last Admin Dose Admin Hydralazine HCl 10 mg ONCE ONCE IV 04/25/19 05:30 04/25/19 05:31 DC 04/25/19 05:24 10 MG Vital Signs/I&O 04/25/19 04/25/19 04/25/19 04/25/19 04:50 04:53 05:17 05:28 Temp 97.7 Pulse 78 79 Resp 26 24 B/P (MAP) 230/129 (162) 202/101 (134) Pulse Ox 93 99 O2 Delivery Nasal Cannula O2 Flow Rate 3.00 40.00 FiO2 93 04/25/19 05:30 B/P (MAP) 187/100 (129) Capillary Refill : Progress Note : Progress Note O2 SATS UP TO MID 90'S ON 4L/NC, THEN IMMEDIATELY PLACED ON BIPAP WITH IMPROVE MENT IN AERATION AND UPPER AIRWAY "WHEEZING" IMMEDIATELY RESOLVED. O2 SATS UP TO 100% PT CALMER AND RESPIRATIONS MUCH LESS LABORED, PT RESTING COMFORTABLY BP DOWN TO 183/94 PRIOR TO DISMISSAL 0556--PT STATES SHE IS DUE FOR DIALYSIS AT 0600 ( NOW ) AND WOULD LIKE TO LEAVE AND GO TO DIALYSIS 0600--ATTEMPTED TO CONTACT [facility], BUT NO ONE ANSWERING PHONE AT THIS TIME ECG Initial ECG Impression Date: Apr 25, 2019 Initial ECG Impression Time: 05:12 Initial ECG Rate: 81 Initial ECG Rhythm: Normal Sinus Diagnostic Imaging Comments CXR--CHF/FLUID OVERLOAD, PENDING RADIOLOGIST REVIEW Reviewed: Reviewed by Me Departure Impression Primary Impression: CHF/FLUID OVERLOAD Additional Impressions: ESRD on dialysis Hypoxia Uncontrolled hypertension Disposition: HOME, SELF-CARE Condition: Improved Departure-Patient Inst. Referrals: GERTRUDE NEWSOME DO (PCP/Family) Primary Care Physician Patient Instructions: CHF, High Blood Pressure Emergencies, End Stage Kidney Disease (DC) Add. Discharge Instructions: GO DIRECTLY TO DIALYSIS WHEN YOU LEAVE ER. All discharge instructions reviewed with patient and/or family. Voiced understanding. ERASMO MATT DO Apr 25, 2019 05:11
[2019-04-25 05:18] LABS: BASOPHILS % (AUTO) 0 % (0-10); EOSINOPHILS # (AUTO) 0.2 10^3/uL (0.0-0.3); EOSINOPHILS % (AUTO) 2 % (0-10); HEMATOCRIT 36 % (35-52); HEMOGLOBIN 11.9 G/DL (11.5-16.0); LYMPHOCYTES # (AUTO) 0.9 X 10^3 (1.0-4.0); LYMPHOCYTES % (AUTO) 11 % (12-44); MEAN CORPUSCULAR HGB CONC 33 G/DL (32-36); MEAN CORPUSCULAR VOLUME 96 FL (80-99); MEAN PLATELET VOLUME 8.7 FL (7.4-10.4); MONOCYTES # (AUTO) 0.4 X 10^3 (0.0-1.0); MONOCYTES % (AUTO) 6 % (0-12); NEUTROPHILS # (AUTO) 6.2 X 10^3 (1.8-7.8); NEUTROPHILS % (AUTO) 81 % (42-75); PLATELET COUNT 189 10^3/uL (130-400); RED CELL DISTRIBUTION WIDTH 16.2 % (10.0-14.5); WHITE BLOOD COUNT 7.7 10^3/uL (4.3-11.0)
[2019-04-25 05:19] LABS: MEAN CORPUSCULAR HEMOGLOBIN 31 PG (25-34)
[2019-04-25 05:22] LABS: ABG BASE EXCESS -0.4 MMOL/L (-2.5-2.5); ABG OXYGEN SATURATION 99 % (94-100); ABG PCO2 41 MMHG (35-45); ABG PH 7.39 (7.37-7.43); ABG PO2 121 MMHG (79-93); ABG TCO2 25.3 MMOL/L (21.0-31.0)
[2019-04-25 05:24] LABS: ALLENS TEST YES-POS; INSPIRED O2 40%; PATIENT TEMP 97.7; VENTILATOR NO
[2019-04-25 05:28] VITALS: BP 202/101
[2019-04-25 05:30] VITALS: BP 187/100
[2019-04-25] MEDS ORDERED: hydrALAZINE (APESOLINE) 20 MG/ML VIAL IV ONE (05:30)
[2019-04-25 05:39] LABS: ALBUMIN 3.9 GM/DL (3.2-4.5); BILIRUBIN,TOTAL 0.5 MG/DL (0.1-1.0); CALCIUM 9.4 MG/DL (8.5-10.1); CREATININE SERUM 6.3 MG/DL (0.60-1.30); MAGNESIUM 2.1 MG/DL (1.8-2.4); POTASSIUM 5.1 MMOL/L (3.6-5.0); TOTAL PROTEIN 7.2 GM/DL (6.4-8.2)
[2019-04-25 05:50] LABS: CREATINE KINASE MB 4.8 NG/ML (<6.6)
[2019-04-25 06:13] VITALS: BP 183/94
--- NOTE | 2019-04-25 06:46 | Diagnostic Imaging Report ---
Indication: Cough and shortness of breath. Comparison: 08/10/2018. Findings: Bilateral perihilar and basilar interstitial opacities have developed. There are also patchy airspace opacities. Potential trace bilateral pleural effusions. No pneumothorax. Central vascular indistinctness is also seen. Heart is enlarged. Impression: Imaging features are most compatible with congestive heart failure and include pulmonary edema with potential trace pleural effusions. Dictated by: Dictated on workstation # [id number]
== END 2019-04-25 06:26 | disposition home or self-care (01) ==
LOC: EDUNIT# 04:44 → ER 04:46
DX: E11.22 Type 2 diabetes mellitus with diabetic chronic kidney disease (principal); I13.2 Hypertensive heart and chronic kidney disease with heart failure and with stage 5 chronic kidney disease, or end stage renal disease; I50.9 Heart failure, unspecified; N18.6 End stage renal disease; E87.70 Fluid overload, unspecified; R09.02 Hypoxemia; F32.9 Major depressive disorder, single episode, unspecified; F41.9 Anxiety disorder, unspecified; D64.9 Anemia, unspecified; I48.91 Unspecified atrial fibrillation; K21.9 Gastro-esophageal reflux disease without esophagitis; Z87.19 Personal history of other diseases of the digestive system; Z82.49 Family history of ischemic heart disease and other diseases of the circulatory system; Z86.010 Personal history of colon polyps; Z99.2 Dependence on renal dialysis; Z88.8 Allergy status to other drugs, medicaments and biological substances; Z79.01 Long term (current) use of anticoagulants; Z79.4 Long term (current) use of insulin; Z98.890 Other specified postprocedural states; Z87.01 Personal history of pneumonia (recurrent)
CPT/HCPCS: 36415; 36600; 71045; 80053; 82550; 82553; 82805; 82962; 83735; 83880; 84484; 85025; 85610; 85730; 93005; 93041; 96374

== ENCOUNTER 2020-04-02 19:14 | Emergency (ER) | payer MEDICARE, OTHER ==
[~2020-04-02] VITALS: Ht 152 cm; Wt 64.0 kg
[2020-04-02] MEDS ORDERED: ONDANSETRON 4 MG/2 ML (SDV) Z0FRAN ONE ×2 (19:19→23:09)
[2020-04-02] MEDS ORDERED: ONDANSETRON 4 MG/2 ML (SDV) Z0FRAN IVP ONE ×2 (19:30→23:30)
[2020-04-02 19:35] LABS: BASOPHILS % (AUTO) 0 % (0-10); EOSINOPHILS # (AUTO) 0.1 10^3/uL (0.0-0.3); EOSINOPHILS % (AUTO) 1 % (0-10); HEMATOCRIT 34 % (35-52); HEMOGLOBIN 10.9 G/DL (11.5-16.0); LYMPHOCYTES # (AUTO) 0.7 X 10^3 (1.0-4.0); LYMPHOCYTES % (AUTO) 10 % (12-44); MEAN CORPUSCULAR HEMOGLOBIN 31 PG (25-34); MEAN CORPUSCULAR HGB CONC 32 G/DL (32-36); MEAN CORPUSCULAR VOLUME 97 FL (80-99); MEAN PLATELET VOLUME 9.5 FL (7.4-10.4); MONOCYTES # (AUTO) 0.4 X 10^3 (0.0-1.0); MONOCYTES % (AUTO) 5 % (0-12); NEUTROPHILS # (AUTO) 6.3 X 10^3 (1.8-7.8); NEUTROPHILS % (AUTO) 84 % (42-75); PLATELET COUNT 188 10^3/uL (130-400); RED CELL DISTRIBUTION WIDTH 15.8 % (10.0-14.5); WHITE BLOOD COUNT 7.5 10^3/uL (4.3-11.0)
[2020-04-02 19:40] LABS: ALBUMIN 3.7 GM/DL (3.2-4.5); POTASSIUM 3.9 MMOL/L (3.6-5.0)
[2020-04-02 19:41] LABS: CALCIUM 8.9 MG/DL (8.5-10.1)
[2020-04-02 19:43] LABS: TOTAL PROTEIN 7.1 GM/DL (6.4-8.2)
[2020-04-02 19:45] LABS: BILIRUBIN,TOTAL 0.5 MG/DL (0.1-1.0)
[2020-04-02 19:46] LABS: CREATININE SERUM 3.83 MG/DL (0.60-1.30)
[2020-04-02 19:48] LABS: BILIRUBIN,URINE NEGATIVE (NEGATIVE); CLARITY,URINE CLEAR; COLOR,URINE YELLOW; GLUCOSE, URINE (UA) 3+ (NEGATIVE); KETONES,URINE TRACE (NEGATIVE); LEUKOCYTE ESTERASE ,URINE NEGATIVE (NEGATIVE); NITRITE,URINE NEGATIVE (NEGATIVE); PH,URINE 8.5 (5-9); PROTEIN,URINE 3+ (NEGATIVE)
[2020-04-02 19:55] LABS: RBC,URINE 0-2 /HPF
[2020-04-02 19:56] LABS: BACTERIA,URINE TRACE /HPF; WBC,URINE 0-2 /HPF
[2020-04-02] MEDS ORDERED: cloNIDine 0.1 MG (CATAPRES) TAB PO ONE (20:00)
[2020-04-02] MEDS ORDERED: NS (IVPB) 250 ML IV ONE (20:00)
[2020-04-02] MEDS ORDERED: inSUlin (REGULAR) HUMAN 1 UNIT/0.01 ML (CHARGE PER UNIT) IV SCH (20:00)
--- NOTE | 2020-04-02 20:03 | ED General ---
General Chief Complaint: Abdominal/GI Problems Stated Complaint: N/V Nursing Triage Note: Pt to [facility] via EMS with c/o N/V/weakness after dialysis today. Pt states she has dialysis 3x/wk. Pt is A&O x 4. EMS reports HTN en route, pt has Hx of HTN and reports she did not take her meds this am per dialysis orders. Nursing Sepsis Screen: No Definite Risk Source of Information: Patient Exam Limitations: No Limitations (CORBY ELIZABETH APRN) History of Present Illness Date Seen by Provider: April 02, 2020 Time Seen by Provider: 20:00 Initial Comments To ER by EMS from home with reports of general weakness nausea and vomiting after dialysis today. She receives dialysis on Wednesday. She was instructed to skip her antihypertensive this morning by dialysis staff as he states it interferes with her dialysis. She received a full dialysis treatment. EMS gave 4 mg of Zofran in route to the hospital, she received another 4 mg here. She denies chest pain or shortness of breath. Timing/Duration: 12 Hours Severity: Moderate Associated Systoms: Nausea/Vomiting (CORBY ELIZABETH APRN) Allergies and Home Medications Allergies Coded Allergies: diphenhydramine HCl (Verified Allergy, Unknown, 08/24/16) Home Medications Apixaban 5 Mg Tablet, 5 MG PO BID, (Reported) Carvedilol 12.5 Mg Tablet, 12.5 MG PO BID, (Reported) Gabapentin 300 Mg Capsule, 300 MG PO HS, (Reported) Glipizide 5 Mg Tablet, 5 MG PO BID, (Reported) Hydrochlorothiazide 12.5 Mg Tablet, 12.5 MG PO DAILY, (Reported) Hydrocodone Bit/Acetaminophen 1 Tab Tab, 1-2 TAB PO 4-6HR PRN for PAIN Prescribed by: RENEE TRENT on 03/02/18922 Insulin Degludec 100 Unit/1 Ml Insuln.pen, 32 UNIT SQ HS, (Reported) Multivitamin 1 Each Tablet, 1 TAB PO DAILY, (Reported) [place] 3 Polyunsat Fatty Acids 1,000 Mg Cap, 2,000 MG PO BID, (Reported) TAKES 2 (1000MG) CAPSULES Ondansetron 4 Mg Tab.rapdis, 4 MG SL Q4H PRN for NAUSEA/VOMITING-1ST LINE Prescribed by: TRISHA CRENSHAW on 08/10/181945 Pravastatin Sodium 20 Mg Tablet, 20 MG PO HS, (Reported) Patient Home Medication List Home Medication List Reviewed: Yes (CORBY ELIZABETH APRN) Review of Systems Review of Systems Constitutional: see HPI; No chills, No fever EENTM: see HPI Respiratory: see HPI; No cough, No dyspnea on exertion, No short of breath Cardiovascular: see HPI; No chest pain Genitourinary: no symptoms reported Musculoskeletal: no symptoms reported Skin: no symptoms reported Psychiatric/Neurological: No Symptoms Reported Hematologic/Lymphatic: No Symptoms Reported Immunological/Allergic: no symptoms reported (CORBY ELIZABETH APRN) Past Dgnqhae-Bldcbv-Jpqmmb Hx Patient Social History Alcohol Use: Rarely Uses Recreational Drug Use: No Smoking Status: Never a Smoker 2nd Hand Smoke Exposure: No Recent Foreign Travel: No Contact w/Someone Who Travel: No Recent Infectious Disease Expo: No Recent Hopitalizations: No (CORBY ELIZABETH APRN) Immunizations Up To Date Tetanus Booster (TDap): Unknown Date of Pneumonia Vaccine: Jan 14, 2012 Date of Influenza Vaccine: Sep 26, 2017 (CORBY ELIZABETH APRN) Seasonal Allergies Seasonal Allergies: No (CORBY ELIZABETH APRN) Past Medical History Surgeries: Yes (COLONOSCOPIES/POLYPECTOMIES; LEFT ARM DIALYSIS GRAFT/FISTULA) Arteriovenous Shunt, Dialysis, Gallbladder, Vascular Surgery Respiratory: Yes (CHF/FLUID OVERLOAD) Pneumonia Currently Using CPAP: No Currently Using BIPAP: No Cardiac: Yes (CHF/FLUID OVERLOAD) Atrial Fibrillation, Chronic Edema/Swelling, Hypertension Neurological: No Reproductive Disorders: No Genitourinary: Yes Renal Failure, Dialysis Gastrointestinal: Yes (LOWER GI BLEEDING FROM DIVERTICULITIS; MULTIPLE COLON POLYPECTOMIES) Gastroesophageal Reflux, Gastrointestinal Bleed, Diverticulosis, Polyps, Gall Bladder Disease Musculoskeletal: Yes Arthritis Endocrine: Yes Diabetes, Insulin dep HEENT: No Cancer: No Psychosocial: Yes Sleep Difficulties, Anxiety, Depression Integumentary: No Blood Disorders: Yes (ANEMIA) Adverse Reaction/Blood Tranf: No (CORBY ELIZABETH APRN) Family Medical History Cardiovascular disease G8 SISTER Diabetes mellitus 19 FATHER 19 MOTHER Neoplasm 19 FATHER 19 MOTHER Physical Exam Vital Signs Vital Signs - First Documented 04/02/20 19:20 Temp 37.1 Pulse 81 Resp 19 B/P (MAP) 190/108 (135) Pulse Ox 95 O2 Delivery Nasal Cannula O2 Flow Rate 2.00 (GARY BONILLA MD) Vital Signs Capillary Refill : Less Than 3 Seconds (CORBY ELIZABETH APRN) Height, Weight, BMI Height: 5'0" Weight: 163lbs. 0.0oz. [id number]; 27.00 BMI Method:Stated General Appearance: No Apparent Distress, WD/WN, Chronically ill Eyes: Bilateral Eye Normal Inspection, Bilateral Eye PERRL, Bilateral Eye EOMI Neck: Full Range of Motion, Normal Inspection Respiratory: No Accessory Muscle Use, No Respiratory Distress Cardiovascular: Regular Rate, Rhythm, Normal Peripheral Pulses Gastrointestinal: Non Tender, Soft Extremity: Normal Capillary Refill, Normal Inspection Neurologic/Psychiatric: Alert, Oriented x3 Skin: Normal Color, Warm/Dry (CORBY ELIZABETH APRN) Progress/Results/Core Measures Suspected Sepsis Recent Fever Within 48 Hours: No Infection Criteria Present: None New/Unexplained Altered Menta: No Sepsis Screen: No Definite Risk SIRS Temperature: Pulse: 81 Respiratory Rate: 19 Laboratory Tests 04/02/20 19:20: White Blood Count 7.5 Blood Pressure 190 /108 Mean: 135 Laboratory Tests 04/02/20 19:20: Creatinine 3.83H, Platelet Count 188, Total Bilirubin 0.5 (CORBY ELIZABETH APRN) Results/Orders Lab Results Laboratory Tests Test 04/02/20 19:20 04/02/20 19:23 04/02/20 19:42 04/02/20 20:45 Range/Units White Blood Count 7.5 4.3-11.0 10^3/uL Red Blood Count 3.47 L 4.35-5.85 10^6/uL Hemoglobin 10.9 L 11.5-16.0 G/DL Hematocrit 34 L 35-52 % Mean Corpuscular Volume 97 80-99 FL Mean Corpuscular Hemoglobin 31 25-34 PG Mean Corpuscular Hemoglobin Concent 32 32-36 G/DL Red Cell Distribution Width 15.8 H 10.0-14.5 % Platelet Count 188 130-400 10^3/uL Mean Platelet Volume 9.5 7.4-10.4 FL Neutrophils (%) (Auto) 84 H 42-75 % Lymphocytes (%) (Auto) 10 L 12-44 % Monocytes (%) (Auto) 5 0-12 % Eosinophils (%) (Auto) 1 0-10 % Basophils (%) (Auto) 0 0-10 % Neutrophils # (Auto) 6.3 1.8-7.8 X 10^3 Lymphocytes # (Auto) 0.7 L 1.0-4.0 X 10^3 Monocytes # (Auto) 0.4 0.0-1.0 X 10^3 Eosinophils # (Auto) 0.1 0.0-0.3 10^3/uL Basophils # (Auto) 0.0 0.0-0.1 10^3/uL Sodium Level 139 135-145 MMOL/L Potassium Level 3.9 3.6-5.0 MMOL/L Chloride Level 93 L 98-107 MMOL/L Carbon Dioxide Level 31 21-32 MMOL/L Anion Gap 15 H 5-14 MMOL/L Blood Urea Nitrogen 22 H 7-18 MG/DL Creatinine 3.83 H 0.60-1.30 MG/DL Estimat Glomerular Filtration Rate 11 BUN/Creatinine Ratio 6 Glucose Level 349 H 70-105 MG/DL Calcium Level 8.9 8.5-10.1 MG/DL Corrected Calcium 9.1 8.5-10.1 MG/DL Total Bilirubin 0.5 0.1-1.0 MG/DL Aspartate Amino Transf (AST/SGOT) 44 H 5-34 U/L Alanine Aminotransferase (ALT/SGPT) 30 0-55 U/L Alkaline Phosphatase 107 40-136 U/L Troponin I 0.081 H <0.028 NG/ML Total Protein 7.1 6.4-8.2 GM/DL Albumin 3.7 3.2-4.5 GM/DL Lipase 46 8-78 U/L Beta-Hydroxybutyrate (Chem panel) 1.42 H 0.00-0.27 MMOL/L Glucometer 328 H 311 H 70-110 MG/DL Urine Color YELLOW Urine Clarity CLEAR Urine pH 8.5 5-9 Urine Specific [place] 1.015 L 1.016-1.022 Urine Protein 3+ H NEGATIVE Urine Glucose (UA) 3+ H NEGATIVE Urine Ketones TRACE H NEGATIVE Urine Nitrite NEGATIVE NEGATIVE Urine Bilirubin NEGATIVE NEGATIVE Urine Urobilinogen 0.2 < = 1.0 MG/DL Urine Leukocyte Esterase NEGATIVE NEGATIVE Urine RBC (Auto) 1+ H NEGATIVE Urine RBC 0-2 /HPF Urine WBC 0-2 /HPF Urine Squamous Epithelial Cells 2-5 /HPF Urine Renal Epithelial Cells NONE /HPF Urine Crystals NONE /LPF Urine Bacteria TRACE /HPF Urine Casts NONE /LPF Urine Mucus NEGATIVE /LPF Urine Culture Indicated NO Test 04/02/20 21:07 04/02/20 22:28 Range/Units Troponin I 0.100 H <0.028 NG/ML Glucometer 221 H 70-110 MG/DL (GARY BONILLA MD) My Orders Orders - GARY BONILLA MD Ondansetron Injection (Zofran Injectio (04/02/20 19:19) (GARY BONILLA MD) Medications Given in ED Current Medications Medications Dose Ordered Sig/Dee Route Start Time Stop Time Status Last Admin Dose Admin Clonidine HCl 0.1 mg ONCE ONCE PO 04/02/20 20:00 04/02/20 20:01 DC 04/02/20 20:07 0.1 MG Ondansetron HCl 4 mg ONCE ONCE IVP 04/02/20 19:30 04/02/20 19:31 DC 04/02/20 19:30 4 MG Sodium Chloride 250 ml @ 999 mls/hr Q16M ONCE IV 04/02/20 20:00 04/02/20 20:15 DC 04/02/20 20:07 999 MLS/HR (GARY BONILLA MD) Vital Signs/I&O 04/02/20 04/02/20 19:20 22:01 Temp 37.1 Pulse 81 79 Resp 19 16 B/P (MAP) 190/108 (135) 167/76 (106) Pulse Ox 95 96 O2 Delivery Nasal Cannula Room Air O2 Flow Rate 2.00 (GARY BONILLA MD) Vital Signs/I&O Capillary Refill : Less Than 3 Seconds (CORBY ELIZABETH APRN) Blood Pressure Mean: 135 Progress Note : Progress Note 220: Assumed care of the patient pending troponin. Patient is resting comfortably. Troponin was slightly elevated above 1 done earlier today. I did discuss this with the patient and her Juan Ramon. 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 Obrien per the family and the patient. She would prefer to just go home and rest. She is not having any chest pain. She does report that they did have to take a little bit more off of her ring dialysis today and she thinks that may be what precipitated all of this. Her is comfortable taking her home. I did have a jeol conversation with both of them regarding the elevated troponin and this may be a heart attack. They both understand and agree to the risk. She states that she would prefer to be at home. Discharged home with return precautions. Patient and family verbalize understanding instructions and agreement with plan. Overall she is feeling better from earlier. 2228: Patient now has returned nausea and is not feeling well. In an effort to discharge home, patient was taken off of supplemental oxygen and found to have O2 sat of 86% on room air. This is not typical for her. Chest x-ray does not show any pulmonary vascular congestion nor pneumonia. Patient states now that she is feeling weaker and would like to be transferred. We will initiate transfer proceedings. I spoke with the patient's , Juan Ramon at [phone] and he agrees. I also spoke with the patient's son, Cassius [phone] and he agrees as well. Initiated transfer proceedings with [facility] in [place], [place], her typical center. Pending call back from hospitalist. 2240: I did discuss the case with Dr. Vaz who accepts patient in transfer pending bed assignment. (GARY BONILLA MD) Diagnostic Imaging Diagonstic Imaging: Xray Plain Films/CT/US/NM/MRI: chest Comments [facility] [place], [place] NAME: FERNANDA [facility] REC#: [id number] PT STATUS: REG ER : 1940 PHYSICIAN: CORBY ELIZABETH OUTREACH SPECIALIST ADMIT DATE: 04/02/20/ER Signed Date of Exam:04/02/20 CHEST 1 VIEW, AP/PA ONLY INDICATION: Nausea, vomiting, weakness postdialysis. COMPARISON: 04/25/2019 FINDINGS: The heart is enlarged but unchanged. There is no vascular congestion. There is no edema or focal pneumonia. A subcentimeter nodule in the medial right upper lung is unchanged. No new or suspicious mass. No effusion or pneumothorax. IMPRESSION: Upper limits heart size but no failure pattern or pneumonia. Dictated by: Dictated on workstation # [id number] Dict: 04/02/202003 Trans: 04/02/202037 [facility] [id number] Interpreted by: DRAKE PERRIN Electronically signed by: DRAKE PERRIN 04/02/202037 (GARY BONILLA MD) Departure Impression Primary Impression: Nausea and vomiting Qualified Codes: R11.2 - Nausea with vomiting, unspecified Additional Impressions: Hyperglycemia ESRD (end stage renal disease) on dialysis Elevated troponin Disposition: XF SHT-TRM HOSP Condition: Stable Transfer Transfer Reason: Exceeds level of care Transfer Time: 22:34 Transfer Facility: [place], [place], Dr Vaz accepting Method of Transfer: EMS (GARY BONILLA MD) Departure-Patient Inst. Referrals: GERTRUDE NEWSOME DO (PCP/Family) Primary Care Physician Add. Discharge Instructions: All discharge instructions reviewed with patient and/or family. Voiced understanding. CORBY ELIZABETH APRN April 02, 2020 20:03 GARY BONILLA MD April 02, 2020 21:57
--- NOTE | 2020-04-02 20:16 | Diagnostic Imaging Report ---
INDICATION: Nausea, vomiting, weakness postdialysis. COMPARISON: 04/25/2019 FINDINGS: The heart is enlarged but unchanged. There is no vascular congestion. There is no edema or focal pneumonia. A subcentimeter nodule in the medial right upper lung is unchanged. No new or suspicious mass. No effusion or pneumothorax. IMPRESSION: Upper limits heart size but no failure pattern or pneumonia. Dictated by: Dictated on workstation # [id number]
--- NOTE | 2020-04-02 21:20 | NUR ---
Pt states she feels better, no complaint of nausea or SOB.
[2020-04-02 22:01] VITALS: BP 167/76
--- NOTE | 2020-04-02 22:16 | NUR ---
Attempted to d/c pt after plan of care was discussed between MD, pt, and spouse. Room air trial failed; pt repositioned in bed and slowly desat to 86-88% on RA. MD notified at this time. Did not proceed with IV d/c.
[2020-04-02 22:54] VITALS: BP 154/86
== END 2020-04-02 23:20 | disposition short-term general hospital (02) ==
LOC: EDUNIT# 19:14 → ER 19:21
DX: E11.65 Type 2 diabetes mellitus with hyperglycemia (principal); E11.22 Type 2 diabetes mellitus with diabetic chronic kidney disease; I13.2 Hypertensive heart and chronic kidney disease with heart failure and with stage 5 chronic kidney disease, or end stage renal disease; N18.6 End stage renal disease; R79.89 Other specified abnormal findings of blood chemistry; I48.91 Unspecified atrial fibrillation; Z99.2 Dependence on renal dialysis; Z79.01 Long term (current) use of anticoagulants; Z79.4 Long term (current) use of insulin; Z88.8 Allergy status to other drugs, medicaments and biological substances; Z82.49 Family history of ischemic heart disease and other diseases of the circulatory system
CPT/HCPCS: 36415; 71045; 80053; 81000; 82010; 82962; 83690; 84484; 85025; 93005; 96361; 96374; 96375; 96376